=== PATIENT | male | born 1965 | race African-American/Black ===

== ENCOUNTER 2023-07-14 22:29 | Inpatient (IN) | payer OTHER, SELFPAY ==
[2023-07-14 17:26] VITALS: BP 187/88
--- NOTE | 2023-07-14 17:32 | ED.GENMED ---
History of Present Illness
General
Chief Complaint: Musculo-Skeletal Complaint
Source: patient and ambulance crew
Exam Limitations: none
Time Seen by Provider: 07/14/23 17:30
Nursing documentation reviewed up to this point in time: agreed with
History of Present Illness
History of Present Illness:
58-year-old male presents emergency room complaining of a seizure and left arm weakness after the seizure. Seizure occurred about an hour ago. He was riding the bus to see his son in [place] and had a seizure. The healthcare business analyst took him off the
bus and he waited at [facility] for the ambulance.
Past History
Past History
ED Past Medical History: Arrthythmia (AFib), CHF, CVA, Seizures and Other (Protein C and Protein S abnormality, lupus, PE, DVT, neuropathy, sarcoidosis, claustrophobia)
ED Past Surgical History: Other (Domi filter, all toes surgically removed)
Social History
Tobacco: Smoker
Alcohol: None
Drug: None
Personal:
Living: with family
Family History
Family History: Other (Reviewed and non-contributory)
Review of Systems
Review of Systems
Allergies reviewed?: Yes
All Other Systems: Not applicable
Constitutional: Reports no symptoms
EENT: Reports no symptoms
Respiratory: Reports no symptoms
Cardiac: Reports no symptoms
ABD/GI: Reports no symptoms
: Reports no symptoms
Musculoskeletal: Reports no symptoms
Skin: Reports no symptoms
Neurological: Reports weakness (Left arm weakness)
Endocrine: Reports no symptoms
Hematologic/Lymphatic: Reports no symptoms
Psychiatric: Reports no symptoms
Phy Exam
Physical Exam
Physical Exam:
Physical Exam
General: no apparent distress, not acutely ill
Neck: supple. no meningeal signs. normal posterior pharynx
Heart: s1/s2 regular rate and rhythm, no murmur. equal radial
pulses.
HEENT: Pupils equal round reactive to light, EOMI
Lungs: no acute respiratory distress. clear bilaterally
Abdomen: normal bowel sounds. not tender. no CVAT
Neuro: alert and oriented. Bilateral leg weakness, left arm weakness
Skin: no rash
Psychiatric: well kept. interactive and cooperative
Extremities: no edema. no calf tenderness. negative homans. good distal pulses
Course
Orders/Labs/Results
Orders:
Orders
07/14/23 17:30
CT Head W/o Iv Contrast Urgent
Comment:
Reason For Exam: left arm weakness after seizure
Cardiac Monitoring- Treatment ONCE
Pulse Ox/cont/shift [RESP] Stat
Quantity: 1
07/14/23 17:31
Electrocardiogram (*1) Stat
Reason for Study: Other
Other Reason for Exam: neuro symptoms
EKG- Treatment ONCE
07/14/23 17:37
Basic Metabolic Panel Urgent
Complete Blood Count/With Diff Urgent
Prothrombin Time Urgent
07/14/23 17:58
Comprehensive Metabolic Panel Urgent
07/14/23 21:19
Levetiracetam Injectable [Keppra] 1,500 mg IV NOW STA
07/14/23 21:20
Cervical Spine wo Contrast CT [CT Cervical Spine W/o Iv Contr] Urgent
Comment:
Reason For Exam: left arm weakness, seizure
07/14/23 22:07
Admit/Transfer Patient As Directed
Co-Sign Provider:
Level of Care: Inpatient admission
Assign to:: Telemetry
Physician / Group: Hospitalist
Diagnosis: Seizure d/o, left sided deficit
Reason for Telemetry: CVA/TIA
Date to Stop Telemetry: 07/17/23
Time to Stop Telemetry: 11:00
Reason for Hospitalization: Left sided weakness
Expected length of stay greater than two midnights?: Yes
ELOS- Estimated Length of Stay in days: 2
I certify the patient meets the requirements for IP care: Yes
07/14/23 22:10
Code Status As Directed
Resuscitation Status: Full Code
07/14/23 22:14
Levetiracetam Injectable [Keppra] 1,000 mg .ROUTE .STK-MED ONE
07/14/23 22:15
Warfarin [Coumadin] 7.5 mg PO NOW STA
07/14/23 23:39
Acetaminophen [Tylenol/Feverall] 650 mg RECTAL Q4HPRN PRN
Acetaminophen [Tylenol] 650 mg PO Q4HPRN PRN
07/14/23 23:39
Case Management Consult ONCE
Case Management Consult: Discharge Planning
Comment: stroke/tia
DIETARY CONSULT Routine
Reason for Consult: stroke/TIA
NEUROLOGY CONSULT Routine
Consulting Provider: Franc Munoz
Was physician already notified: Yes
Reason for consult: seizure, left sided weakness
[employer] Urgent
Activity As Directed
Activity Level: With Assistance
Bedside Glucose Monitoring As Directed
Frequency: AC&HS
NIH Stroke Scale As Directed
Directions: Per protocol
Comment: every shift and with any change in condition or mental status
Neurological Checks As Directed
Frequency: q4h
Additional Instructions:: q4h x 24h upon admission to the floor, then qshift & with any change in condition
and mental status
Patient Education As Directed
Type: Stroke education packet
Comment: provide to patient and family
Pneumatic Compression Sleeves As Directed
Type: Knee high
Swallow Screening CVA/TIA ONLY As Directed
Comment: NPO until swallowing screening completed
If patient FAILS swallow screening:: NPO, Speech Therapy consult, Aspiration Precautions
If patient PASSES swallow screening, diet:: 2200 amilcar/ 18 CHO Diabetic
Above diet order entered?: Yes- passed screening
Vital Signs As Directed
Frequency: Per unit guidelines
Ot Eval And Treat Routine
Pt Eval And Treat Routine
Activity Level: With Assistance
Speech Therapy Eval & Treat Routine
DX Deep Vein Thrombosis Video Routine
07/15/23 06:00
Basic Metabolic Panel IN AM
Cardiovascular Evaluation IN AM
Complete Blood Count/No Diff IN AM
Glycohemoglobin (HgbA1c) IN AM
Prothrombin Time IN AM
07/15/23 07:30
Insulin Aspart Corrective Low [Novolog Flexpen-Low Resistance] See Protocol SC AC
07/15/23 08:00
Atorvastatin [Lipitor] 80 mg PO DAILY
Hydroxychloroquine [Plaquenil] 400 mg PO BID
Levetiracetam [Keppra] 1,000 mg PO BID
Pantoprazole [Protonix] 40 mg PO BID
Prednisone [Deltasone] 20 mg PO DAILY
07/15/23 18:00
Warfarin [Coumadin] 7.5 mg PO QPM
07/17/23 11:00
DC Protocol for Telemetry ONCE
Abnormal Lab Results
07/14/23
17:37
RBC 4.07 L 10^6/uL
(4.70-6.10)
Hgb 9.4 L g/dL
(13.0-18.0)
Hct 30.3 L %
(39.0-52.0)
MCV 74.4 L fL
(80.0-94.0)
MCH 23.1 L pg
(27.0-31.0)
MCHC 31.0 L g/dL
(33.0-37.0)
RDW 21.2 H %
(11.5-14.5)
Abs Immat Gran (auto) 0.1 H 10^3/uL
(0-0.05)
Immature Gran % 0.7 H %
(0-0.5)
PT 20.8 H Sec
(11.4-14.6)
Creatinine 0.5 L mg/dL
(0.7-1.3)
Glucose 114 H mg/dl
(70-99)
07/14/23 17:37
07/14/23 17:37
Vital Signs
Initial and Last Documented VS:
Initial Vital Signs
Temp Pulse Resp BP Pulse Ox
97.7 F 67 15 187/88 98
07/14/23 17:26 07/14/23 17:26 07/14/23 17:26 07/14/23 17:26 07/14/23 17:26
Last Documented Vital Signs
Temp Pulse Resp BP Pulse Ox
98.3 F 62 18 157/25 98
07/14/23 23:45 07/14/23 23:45 07/14/23 23:45 07/14/23 23:45 07/14/23 23:45
MDM/Problems Addressed
Differential Diagnosis Includes:
Seizure, CVA
MDM/Problems Addressed:
58-year-old male with seizure and left arm weakness, likely functional neurologic deficit. Will admit for further workup. Discussed with Dr. Munoz, who rec admission, and continuing baseline medications.
Chronic conditions affecting care: Neurological disorder (CVA) and Other (Lupus, multiple DVTs)
Acute Exacerbation and/or Progression of Chronic Illness: Neurological disorder (Epilepsy)
*Radiology
Radiology exam reviewed: radiology read reviewed (CT head no acute findings)
*Pulse Oximetry
Patient hypoxic: no
*EKG
Interpreted by ED Provider?: Yes
EKG Intrepretation Date: 07/15/23
EKG Intrepretation Time: 18:44
Interpretation: abnormal
Comparison EKG: no changes
Heart Rate: 66
Rate: normal
Rhythm: sinus, PAC's and PVC's
Ransom: normal axis
Interval: normal interval
QRS Pattern: normal QRS
Ischemia: non-specific ST changes
*[facility] Senior Specialist Interpretation
Rate: normal
Interpretation: normal
Heart Rate: 66
Rhythm: sinus
*Critical Care Note
Total Time (30-74mins, 75-104mins- exclusive of procedures): Not Applicable
Data Reviewed
Review of Other/Old Records Reveals: Records
Source: records (prior eval for similar presentation 04/11/23, functional neurologic disorder)
Prescriptions/Medications Considered But Not Given:
TNK not indicated
Patient Management
Social determinants of health affecting care: Living situation and Strong social support
Discussion with other providers: Hospitalist and Enrolled Agent (neurology Dr. Munoz)
Escalation/DeEscalation of care consider admission/obs:
admit indicated
ED Attending Note
-
Portions of this chart may have been created with voice recognition software.� Occasional wrong word or��sound alike� substitutions may have occurred due to the inherent limitations of voice recognition software.
Discharge Plan
Departure
Patient Disposition: Admit
Date of Disposition: 07/14/23
Time of Disposition: 21:24
Admit to: Telemetry
Presentation/result/management discussed w/ accepting MD/DO: Hospitalist
Patient with high blood pressure during this ER visit?: Yes
Condition: Fair
Discharge Problem:
Seizure, Hypercoagulable state, Sarcoidosis, unspecified, Muscle weakness of left upper extremity
Interventions
Interventions:
*Risk Screen - Suicide Last Done: 07/14/23 17:26
*General Assessment Last Done: 07/14/23 17:26
*Neglect/Abuse Screening Last Done: 07/14/23 17:26
ED- Fall Risk Assessment Last Done: 07/14/23 23:47
*ED COVID-19 Vaccine History Last Done: 07/14/23 17:26
*Nursing Disposition Last Done: 07/14/23 23:47
ED-Musculoskeletal Assessment Last Done: 07/14/23 17:34
Discharge Date and Time
Discharge Date/Time: 07/14/23 23:47
[2023-07-14 17:48] LABS: % Basophils 0.5 % (0-2); % Immature Granulocytes 0.7 % (0-0.5); % Monocytes 8.3 % (1.7-9.3); % Neutrophils 62.5 % (42.2-75.2); Absolute Eosinophils 0.2 10^3/uL (0-0.7); Absolute Immature Granulocytes 0.1 10^3/uL (0-0.05); Absolute Lymphocytes 1.9 10^3/uL (1.2-3.4); Absolute Monocytes 0.6 10^3/uL (0.1-0.6); Absolute Neutrophils 4.6 10^3/uL (1.4-6.5); Hematocrit 30.3 % (39.0-52.0); Hemoglobin 9.4 g/dL (13.0-18.0); Mean Corpuscular Hgb 23.1 pg (27.0-31.0); Mean Corpuscular Volume 74.4 fL (80.0-94.0); Mean Platelet Volume 10.2 fL (7.4-10.4); Nucleated Red Blood Cells % 0 % (-); Red Blood Cell Count 4.07 10^6/uL (4.70-6.10); Red Cell Dist. Width 21.2 % (11.5-14.5); White Blood Cell Count 7.4 10^3/uL (4.8-10.8)
[2023-07-14 17:57] LABS: Platelet Count 178 10^3/uL (130-400)
[2023-07-14 17:58] LABS: PT 20.8 Sec (11.4-14.6)
[2023-07-14 18:12] LABS: Blood Urea Nitrogen 14 mg/dl (9-20); Calcium 8.7 mg/dl (8.4-10.2); Carbon Dioxide 26 mmol/L (22-30); Chloride 105 mmol/L (98-107); Glucose 114 mg/dl (70-99); Sodium 135 mmol/L (135-145); eGFR > 60.00
[2023-07-14 19:18] VITALS: BP 134/57
[2023-07-14 20:02] VITALS: BP 141/73
[2023-07-14 21:02] VITALS: BP 144/67
--- NOTE | 2023-07-14 21:53 | HPS.HSE ---
Family Physician
-
Family Physician: INTERVIEWE UNKNOWN - PT NOT
Chief Complaint
-
Seizure, left arm weakness
History of Present Illness
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
diabetes, osteomyelitis status post bilateral TMA presenting to the emergency department with left hand weakness following a seizure this a.m.
Patient reported compliance with antiepileptic drugs. Reports her last seizure was about 3 months ago with no changes in antiepileptic medications. Has not seen neurologist in a long time but is planning to follow-up with them. He did recall that
he took his Keppra this morning. While he was on the bus (about a seizure episode and was brought to the emergency department thereafter. He appears to be postictal micturition. He is currently awake and minimally responsive. However he has
continued to have left arm and left leg weakness. Patient reports that he has had a similar presentation with left-sided weakness after his seizures in the past. He denies any facial asymmetry, slurred speech or difficulty swallowing.
In the ED ED patient was afebrile and hemodynamically stable. ECG shows a normal sinus rhythm with a rate of 61 occasional PAC and PVCs. CT of the head was negative. CBC is unchanged from prior. Chemistries were mostly unremarkable but potassium
is pending. INR is 1.8. Case discussed with neurology with concern of functional deficits secondary to cause paralysis.
Medical History
Past Medical History
Past Medical History: Reports Seizures
Additional Past Medical History:
Hypercoagulable state,
Essential hypertension
Rheumatoid arthritis
Lupus anticoagulant
Osteomyelitis
Past Surgical History: Reports Orthopedic (Status post bilateral TMA)
Social History
Tobacco: Smoker
Alcohol: None
Drug: None
Personal:
Living: With Family
Employment: Disabled
Family History
Family History: Not pertinent
Allergies / Home Medications
Allergies reflects when Allergies were last updated in [employer].
Home Medications with original date entered in [employer]
Allergy/Medication List:
Allergies
Allergy/AdvReac Type Severity Reaction Status Date / Time
fondaparinux [From Arixtra] Allergy Severe Hives Verified 07/14/23 17:43
apixaban Allergy Anaphylaxis Verified 07/14/23 17:43
enoxaparin sodium Allergy RASH AT Verified 07/14/23 17:43
[From Lovenox] INJECTION
SITE
Iodinated Contrast Media Allergy HIVES,VOMIT Verified 07/14/23 17:43
[IV Dye, Iodine Containing] ING
meperidine HCl [From Demerol] Allergy PT DENIES? Verified 07/14/23 17:43
phenytoin sodium Allergy SEVERE Verified 07/14/23 17:43
[From Dilantin] THROAT
CLOSING'
pneumococcal vaccine Allergy Vomiting Verified 07/14/23 17:43
Home Medications
hydroxychloroquine 200 mg tablet 400 mg PO BID sarcoidosis 10/17/14
prednisone 20 mg tablet 20 mg PO DAILY lupus 10/17/14
lansoprazole 30 mg capsule,delayed release (Prevacid) 30 mg PO BID Gastrointestinal issue 01/07/22
oxycodone-acetaminophen 5 mg-325 mg tablet 2 tab PO Q4H PRN moderate pain #16 tabs 01/16/22
atorvastatin 80 mg tablet 80 mg PO DAILY High Cholesterol 04/08/23
warfarin 7.5 mg tablet 7.5 mg PO DAILY protein S and C deficiency 04/08/23
levetiracetam 500 mg tablet 1,000 mg PO BID Seizures #0 tabs 04/11/23
Review of Systems
-
History Source: Patient
Constitutional: Reports No Symptoms
EENT: Reports No Symptoms
Respiratory: Reports No Symptoms
Cardiac: Reports No Symptoms
Abdomen/GI: Reports No Symptoms
: Reports No Symptoms
Musculoskeletal: Reports No Symptoms
Skin: Reports No Symptoms
Neurological: Reports Weakness
Endocrine: Reports No Symptoms
Hematologic/Lymphatic: Reports No Symptoms
Psych: Reports No Symptoms
Physical Exam
Vital Signs
Vital Signs
Temp Pulse Resp BP Pulse Ox
97.7 F 95 20 144/67 95
07/14/23 17:26 07/14/23 21:02 07/14/23 21:02 07/14/23 21:02 07/14/23 21:02
Physical Exam
General: No Apparent Distress
HEENT: NormoCephalic, Anicteric, Moist mucous membranes, PERRLA and [place] Conjunctivae
Respiratory: Clear
Cardiac: S1/S2 and Regular Rhythm
Breast: Deferred by me
GI: Soft, Non Tender, Non Distended and Normal Bowel Sounds
Rectal: Deferred by Provider
Genito-urinary: Deferred by me
Musculoskeletal: No Clubbing, No Cyanosis, No Edema and Other (Bilateral TMA)
Skin: Warm and Dry
Neuro: AO x 3
Hematologic/Lymphatic: No Lymphadenopathy
Psych: Calm
Laboratory Results
-
07/14/23 17:37
Laboratory Results
PT 20.8 Sec (11.4-14.6) H 07/14/23 17:37
INR 1.80 07/14/23 17:37
Total Bilirubin Cancelled 07/14/23 17:37
AST Cancelled 07/14/23 17:37
ALT Cancelled 07/14/23 17:37
Alkaline Phosphatase Cancelled 07/14/23 17:37
Data Reviewed
-
CT Scan: Report Reviewed by me
Medical Tests (Nuc Med, Echo, EKG etc): Image Personally Visualized and interpreted
Lab Data: Labs Reviewed by me
Old Records: Reviewed
Impression/Plan
-
IMPRESSION:
History 58-year-old male with a history of seizure disorder, hypercoagulable state (lupus anticoagulant, protein C and S deficiency,) on anticoagulation with Coumadin, history of sarcoidosis, posterior myelitis status post bilateral TMA, denies
history of diabetes and is currently off any insulin regimen no antidiabetic medications who presents to the emergency department following a tonic-clonic seizure activity while on the bus. This is followed by left-sided weakness in the upper and
lower extremity. Patient reports similar episodes of left-sided weakness after prior seizure episodes with last seizure described having occurred about 3 months ago. Denies missing any doses of his Keppra.
PLAN:
1. Seizure - Known seizure d/o on AEDs (Keppra). Infrequent episodes with last episode [address] head negative. Labs unremarkable. No signs of acute infection. Denies missing doses. Currently alert and oriented and mentating normally.
Profound Left sided weakness without any other anomalies. Normal sensation. D/W neurology. plan to continue his current regimen.
- admit to telemetry
- s/p Keppra 1.5 mg IV in ED, continue Keppra 100mg bid
- prn lorazepam for seizures
- consider mri
2. Weakness - suspect Ruddy's paralysis given h/o prior versus acute CVA. NIHSS = 8 at this time. due to weakness in left upper and lower ext. CT head negative.
- telemetry
- mri in am if no improvement
- continue ac with coumadin 7.5mg
- continue statin
- neurology notified and following
- swallow evaluation
3. AC
- coumadin 7.5mg daily, check INR
4. DM II - denies diabetes despite records and has not been taking any meds
- sliding scale for now
- a1c in am
5. Rheum - RA
- on chronic prednisone 20mg daily and plaquenil 400mg daily
Full Code
[2023-07-14] MEDS: KEPPRA 1500 MG IV (22:17)
[2023-07-14] MEDS: COUMADIN 7.5 MG PO (23:11)
[2023-07-14 23:45] VITALS: BP 157/25; BMI 22.6
[2023-07-15] VITALS (8 sets, daily range): BP systolic 91–131; BP diastolic 51–66; PULSE 71; O2SAT 98–99; BMI 22.6
--- NOTE | 2023-07-15 | PTCARENOTE ---
pt arrived from ed, pulled over onto bed. aaox3, tele placed, VSS, see MAR and assessment for further details. call parrish within reach.
[2023-07-15] MEDS: PLAQUENIL 400 MG PO ×2 (07:53→21:56)
[2023-07-15] MEDS: LIPITOR 80 MG PO (07:53)
[2023-07-15] MEDS: PROTONIX 40 MG PO ×2 (07:53→21:56)
[2023-07-15] MEDS: DELTASONE 20 MG PO (07:53)
[2023-07-15] MEDS: KEPPRA 1000 MG PO (07:57)
[2023-07-15 07:59] LABS: Glucose - Point of Care 119 mg/dl (70-99)
--- NOTE | 2023-07-15 08:33 | W.PN.HOSP.TC ---
Today's Communication/Plan
-
Increase Keppra. Continue warfarin. PT OT eval.
Assessment / Plan
Assessment / Plan
Physical exam:
General: Well Developed, Well Nourished and No Apparent Distress
HEENT: Normocephalic, Atraumatic and Moist Mucous Membranes
Respiratory: Clear to Auscultation; Negative Wheezes, Rales or Rhonchi
Cardiac: Regular Rhythm and S1/S2
GI: Soft, Nontender and Nondistended
Musculoskeletal: No Clubbing, No Cyanosis and No Edema
Neuro: Awake, Alert and Oriented. Left hemiparesis. Cranial nerves are intact.
Psych: Calm
A/P:
1.� Seizure - Known seizure d/o on AEDs (Keppra).� Infrequent episodes with last episode 3 months ago.� CT head negative.� Labs unremarkable.� No signs of acute infection.� Denies missing doses.� Currently alert and oriented and mentating normally.�
Profound Left sided weakness without any other anomalies.� Normal sensation.� D/W neurology.� plan to continue his current regimen.
-Continue monitor neurological status
- s/p Keppra 1.5 mg IV in ED, continue Keppra 100mg in the morning and 1500 mg at night
- prn lorazepam for seizures
-No need for MRI of the brain or cervical spine given recurrence of event and neurology feels less likely stroke and most likely seizures with Ruddy's paralysis versus functional neurological disorder.
-Likely will need rehab
2. Weakness - suspect Ruddy's paralysis given h/o prior versus acute CVA.� NIHSS =� 8 at this time.� due to weakness in left upper and lower ext.� CT head negative.
- telemetry
- continue ac with Coumadin 7.5mg
- continue statin
- neurology consulted and appreciated input
- swallow evaluation
3. AC
- coumadin 7.5mg daily, check INR
4. DM II - denies diabetes despite records and has not been taking any meds
- sliding scale for now
- a1c in am
5. Rheum - RA
- on chronic prednisone 20mg daily and plaquenil 400mg daily
Full Code
Anticipated Discharge: 24 - 48 hours
Subjective/Interval History
-
Date of Service: July 15, 2023
Patient alert today, denies any seizure-like activity, denies any chest pain or shortness of breath. He still has weakness on the left side of his body. He also complains of chronic pain for which he uses narcotics that it is not order yet.
Objective Data
-
Labs:
Laboratory Results
07/15/23 07/15/23
00:23 06:00
WBC Pending
Hgb Pending
Hct Pending
Plt Count Pending
PT Pending
INR Pending
Sodium Cancelled Pending
Potassium Cancelled Pending
Chloride Cancelled Pending
Carbon Dioxide Cancelled Pending
BUN Cancelled Pending
Creatinine Cancelled Pending
Glucose Cancelled Pending
Calcium Cancelled Pending
Total Bilirubin Cancelled
AST Cancelled
ALT Cancelled
Alkaline Phosphatase Cancelled
Vital Signs:
Vital Signs
Temp Pulse Resp BP Pulse Ox
98.2 F 76 17 102/55 96
07/15/23 07:00 07/15/23 07:00 07/15/23 07:00 07/15/23 07:00 07/15/23 07:00
I&O
07/14/23 07/15/23 07/16/23
06:59 06:59 06:59
Intake Total 240 / 240
Output Total 200 / 200
Balance 40 / 40
Review of Systems
-
All other systems: Reviewed and negative
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
--- NOTE | 2023-07-15 09:52 | PTOTSP ---
Speech Therapy
Patient's speech appeared to intermittently sound a little dysarthric characterized by imprecise consonant production which may be correlated with patient's edentulous dental state. Patient denied any communicative complaints. Patient's
intelligibility remained WNL during conversation.
Swallowing Function: CLOTH FINISHING RANGE BACK TENDER observed patient with several sips of thin liquids and bites of regular consistency solids in which patient appeared to tolerate as he did not exhibit any overt clinical s/sx of aspiration. CLOTH FINISHING RANGE BACK TENDER noted prolonged mastication
which is likely correlated with edentulous dentition but patient independently used thin liquid washes to assist with manipulation. Patient denied any dysphagia complaints.
Per RN, patient tolerated medications whole with thin liquids.
Of note, patient is experiencing left sided weakness throughout the body. This weakness did not appear to impact his ability to eat or drink but is apparent.
Recommendations:
1) Continuation of regular consistency solids and thin liquids
2) Standard aspiration precautions
3) Medications whole with thin liquids
4) Consider further speech/ cognitive assessment pending hospitalization
Plan: CLOTH FINISHING RANGE BACK TENDER will continue to follow; pending hospitalization.
[2023-07-15 11:59] LABS: INR 2.34; PT 25.5 Sec (11.4-14.6)
[2023-07-15] MEDS: PERCOCET 5/325 2 TABLET PO ×3 (11:59→21:53)
[2023-07-15 12:01] LABS: Glycohemoglobin (HgbA1c) 7.2 % (4.0-5.6)
--- NOTE | 2023-07-15 16:01 | CM ---
Chart reviewed - spoke with pt at bedside
Per pr was [place] [address], had a seizure and was brought to the hospital
Pt reports lives with his in [facility] in a 2 story home
Independent with most things, needs some assist - Left sided weakness
DME - wheel chair, stair glide, rolling walker
Past home care - unsure of agency
Past SNF - unsure of facility - in [facility]
PCP - Sr Espinosa
Pharm - [facility]
Pending PT/OT recs
Plan - anticipate d/c to snf - will need auth
[2023-07-15] MEDS: COUMADIN 7.5 MG PO (17:27)
[2023-07-15] MEDS: KEPPRA 1500 MG PO (21:53)
[2023-07-16] MEDS: PERCOCET 5/325 2 TABLET PO ×5 (02:13→22:54)
--- NOTE | 2023-07-16 05:39 | PTCARENOTE ---
Patient refusing am labs, 0400 Neuro check, 0300 vitals, and HS accu check.
[2023-07-16 07:00] VITALS: BP 151/71
--- NOTE | 2023-07-16 07:21 | W.PN.HOSP.TC ---
Today's Communication/Plan
-
Continue increased doses of Keppra. PT OT eval
Assessment / Plan
Assessment / Plan
Physical exam:
General: Well Developed, Well Nourished and No Apparent Distress
HEENT: Normocephalic, Atraumatic and Moist Mucous Membranes
Respiratory: Clear to Auscultation; Negative Wheezes, Rales or Rhonchi
Cardiac: Regular Rhythm and S1/S2
GI: Soft, Nontender and Nondistended
Musculoskeletal: No Clubbing, No Cyanosis and No Edema
Neuro: Awake, Alert and Oriented. Left hemiparesis. Cranial nerves are intact.
Psych: Calm
A/P:
1.� Seizure - Known seizure d/o on AEDs (Keppra).� Infrequent episodes with last episode 3 months ago.� CT head negative.� Labs unremarkable.� No signs of acute infection.� Denies missing doses.� Currently alert and oriented and mentating normally.�
Profound Left sided weakness without any other anomalies.� Normal sensation.� D/W neurology.� plan to continue his current regimen.
-Continue monitor neurological status
- s/p Keppra 1.5 mg IV in ED, continue Keppra 100mg in the morning and 1500 mg at night
- prn lorazepam for seizures
-No need for MRI of the brain or cervical spine given recurrence of event and neurology feels less likely stroke and most likely seizures with Ruddy's paralysis versus functional neurological disorder.
-PT OT eval and recommended rehab.
-Case management for discharge disposition
2. Weakness - suspect Ruddy's paralysis given h/o prior versus acute CVA.� NIHSS =� 8 at this time.� due to weakness in left upper and lower ext.� CT head negative.
- telemetry
- continue ac with Coumadin 7.5mg
- continue statin
- neurology consulted and appreciated input
- swallow evaluation
3. AC
- coumadin 7.5mg daily, check INR (2.34 yesterday, pending today)
4. DM II - denies diabetes despite records and has not been taking any meds
- sliding scale for now
- a1c 7.2
-diabetes education
5. Rheum - RA
- on chronic prednisone 20mg daily and plaquenil 400mg daily
Full Code
Anticipated Discharge: 24 - 48 hours
Subjective/Interval History
-
Date of Service: July 16, 2023
Patient still weak on the left side. He has been noted by nursing 'moving his left side more independently' when he has not been witnessed. He adamantly thinks that he is not diabetic despite elevated hemoglobin A1c. No chest pain or shortness of
breath. No seizure-like activity.
Objective Data
-
Labs:
Laboratory Results
07/15/23 07/16/23
06:00 06:00
WBC Cancelled Pending
Hgb Cancelled Pending
Hct Cancelled Pending
Plt Count Cancelled Pending
PT Pending
INR Pending
Sodium Cancelled Pending
Potassium Cancelled Pending
Chloride Cancelled Pending
Carbon Dioxide Cancelled Pending
BUN Cancelled Pending
Creatinine Cancelled Pending
Glucose Cancelled Pending
Calcium Cancelled Pending
Vital Signs:
Vital Signs
Temp Pulse Resp BP Pulse Ox
98.4 F 71 18 104/51 97
07/15/23 23:50 07/15/23 23:50 07/15/23 23:50 07/15/23 23:50 07/15/23 23:50
I&O
07/15/23 07/16/23 07/17/23
06:59 06:59 06:59
Intake Total 240 / 240 1080 / 1080
Output Total 200 / 200 1400 / 1400
Balance 40 / 40 -320 / -320
[2023-07-16] MEDS: PLAQUENIL 400 MG PO ×2 (08:49→21:45)
[2023-07-16] MEDS: PROTONIX 40 MG PO (08:49)
[2023-07-16] MEDS: LIPITOR 80 MG PO (08:49)
[2023-07-16] MEDS: KEPPRA 1000 MG PO (08:50)
[2023-07-16] MEDS: DELTASONE 20 MG PO (08:50)
[2023-07-16 11:00] VITALS: BP 123/66
--- NOTE | 2023-07-16 12:03 | PN.DE.MGMTRT ---
Insulin Management
- -
07/16/2023: Diabetes Management Consult
58 year old male admitted after an episode of seizure-like activity.
PMH includes: Seizure disorder, Sarcoidosis, GERD, Chronic pain syndrome, Chronically steroid-dependent, Protein S and C deficiency and T2DM on chronic steroids- Pred 20mg daily. Pt states he is not diabetic, A1C 7.2%, chart review shows he was
taking Humalog 5 units AC and Jardiance 10mg daily which was started during his last hospitalization here 04/08/23 to 04/11/23 during which his A1C was 7.9%
His current diabetes regimen includes: low corrective insulin only. He has been non-compliant with Accucheks. Had a FBG of 114 on 07/13 and an AM POC glucose of 119 on 07/14, there has been no other blood sugars obtained.
Will resume Jardiance at OP dose of 10mg daily. Cont Corrective insulin.
Diabetes History
- -
Type of Diabetes: 2
Pre-Admission Diabetes Regimen
07/15/23
06:00
Creatinine Cancelled
Lab Results
Hemoglobin A1c Cancelled 07/15/23 06:00
Insulin Pump Settings
IP Diabetes Regimen
07/15/23
06:00
Glucose Cancelled
Meal type: Lunch
Meal type: Breakfast
Amount consumed: 100%
Amount consumed: 100%
Patient Education
--- NOTE | 2023-07-16 13:09 | PTCARENOTE ---
Diabetes Education- Ken known to me from previous visit in 2015 (A1C 11.7% at that time), current A1C 7.2%. He is insistent that he doesn't have diabetes, stating 'I take steroids'. Explained that prednisone does increase BS and his previous and
current A1C are diagnostic values used to give a diagnosis of diabetes, stated that it may be referred to as steroid induced diabetes but that he should be checking his BS and taking medication as prescribed. He continues to insist 'I don't have
diabetes'. Provided with Contour Next EZ glucometer, instructions given along with testing pattern. He was not able to return demonstrate as he could not use his left hand to hold the lancing device. He states his PCP told him not to test. Explained
the benefit, as he is so resistant, suggest testing FBS 2-3 times a week so he will know the impact both prednisone and Jardiance have. It was challenging to keep him on task as he was talkative regarding many past stories (dx sarcoidosis, of
his son, free [employer] rides, osteomyelitis resulting in bilateral toes amputated, issues with knees). Education booklet with phone number provided for follow up questions.
[2023-07-16 14:34] VITALS: BP 127/63
[2023-07-16] MEDS: COUMADIN 7.5 MG PO (17:02)
[2023-07-16 19:30] VITALS: BP 137/58
[2023-07-16] MEDS: NEURONTIN PO ×2 (21:43→22:00)
[2023-07-16] MEDS: KEPPRA 1500 MG PO (21:51)
[2023-07-16 23:30] VITALS: BP 133/58
[2023-07-17] MEDS: PERCOCET 5/325 2 TABLET PO ×3 (02:53→11:23)
[2023-07-17 03:30] VITALS: BP 140/64
--- NOTE | 2023-07-17 05:54 | PTCARENOTE ---
Patient refused accu checks, continued refusal of any lab draws.
[2023-07-17 07:00] VITALS: BP 154/75
--- NOTE | 2023-07-17 07:48 | W.PN.HOSP.TC ---
Today's Communication/Plan
-
Discharge planning today.
Assessment / Plan
Assessment / Plan
Physical exam:
General: Well Developed, Well Nourished and No Apparent Distress
HEENT: Normocephalic, Atraumatic and Moist Mucous Membranes
Respiratory: Clear to Auscultation; Negative Wheezes, Rales or Rhonchi
Cardiac: Regular Rhythm and S1/S2
GI: Soft, Nontender and Nondistended
Musculoskeletal: No Clubbing, No Cyanosis and No Edema
Neuro: Awake, Alert and Oriented. Apparently left weakness. Cranial nerves are intact.
Psych: Calm
A/P:
1.� Seizure - Known seizure d/o on AEDs (Keppra).� Infrequent episodes with last episode 3 months ago.� CT head negative.� Labs unremarkable.� No signs of acute infection.� Denies missing doses.� Currently alert and oriented and mentating normally.�
Profound Left sided weakness--->Based on current event, patient has conversion disorder most likely.
-Discussed about having psychiatry to see him but he did became upset and does not want to see psychiatry.
-He now tells me that he needs to go to sign papers for his daughter that is in the hospital and he was to go today or sign AMA.
-No need for further inpatient workup and he does not want to go to rehab anyway which at this point I doubt that he needs it. At this point he can be discharged home.
-Continue current antiseizure medicines
Prior to today:
- s/p Keppra 1.5 mg IV in ED, continue Keppra 100mg in the morning and 1500 mg at night
- prn lorazepam for seizures
-No need for MRI of the brain or cervical spine given recurrence of event and neurology feels less likely stroke and most likely seizures with Ruddy's paralysis versus functional neurological disorder.
-PT OT eval and recommended rehab.
-Case management for discharge disposition
2. Weakness - suspect conversion disorder vs Ruddy's paralysis given h/o prior versus acute CVA.� NIHSS =� 8 at this time.� due to weakness in left upper and lower ext.� CT head negative.
- telemetry
- continue ac with Coumadin 7.5mg
- continue statin
- neurology consulted and appreciated input
- swallow evaluation
3. AC
- coumadin 7.5mg daily, check INR (2.34 yesterday, pending today)
4. DM II - denies diabetes despite records and has not been taking any meds
- sliding scale for now
- a1c 7.2
-diabetes education
5. Rheum - RA
- on chronic prednisone 20mg daily and plaquenil 400mg daily
Full Code
Anticipated Discharge: Today
Subjective/Interval History
-
Date of Service: July 17, 2023
Patient was holding the phone on his left hand and as soon as I walked into the room, he switched phone to his right hand and he placed his left arm in the bed and did not move it anymore.
Objective Data
-
Labs:
Laboratory Results
07/16/23 07/17/23
06:00 06:00
WBC Cancelled Pending
Hgb Cancelled Pending
Hct Cancelled Pending
Plt Count Cancelled Pending
PT Cancelled Pending
INR Cancelled Pending
Sodium Pending
Potassium Pending
Chloride Pending
Carbon Dioxide Pending
BUN Pending
Creatinine Pending
Glucose Pending
Calcium Pending
Vital Signs:
Vital Signs
Temp Pulse Resp BP Pulse Ox
98.2 F 62 18 154/75 98
07/17/23 07:00 07/17/23 07:00 07/17/23 07:00 07/17/23 07:00 07/17/23 07:00
I&O
07/16/23 07/17/23 07/18/23
06:59 06:59 06:59
Intake Total 1080 / 1080 1440 / 1440
Output Total 1400 / 1400 2400 / 2400
Balance -320 / -320 -960 / -960
[2023-07-17] MEDS: LIPITOR 80 MG PO (08:11)
[2023-07-17] MEDS: KEPPRA 1000 MG PO (08:11)
[2023-07-17] MEDS: NEURONTIN 600 MG PO (08:11)
[2023-07-17] MEDS: PLAQUENIL 400 MG PO (08:11)
[2023-07-17] MEDS: DELTASONE 20 MG PO (08:12)
[2023-07-17] MEDS: PROTONIX 40 MG PO (08:12)
[2023-07-17] MEDS: JARDIANCE 10 MG PO (08:12)
[2023-07-17 11:00] VITALS: BP 136/76
--- NOTE | 2023-07-17 11:50 | PN.DE.MGMTRT ---
Insulin Management
- -
07/16/2023: Diabetes Management Consult
58 year old male admitted after an episode of seizure-like activity.
PMH includes: Seizure disorder, Sarcoidosis, GERD, Chronic pain syndrome, Chronically steroid-dependent, Protein S and C deficiency and T2DM on chronic steroids- Pred 20mg daily. Pt states he is not diabetic, A1C 7.2%, chart review shows he was
taking Humalog 5 units AC and Jardiance 10mg daily which was started during his last hospitalization here 04/08/23 to 04/11/23 during which his A1C was 7.9%
His current diabetes regimen includes: low corrective insulin only. He has been non-compliant with Accucheks. Had a FBG of 114 on 07/13 and an AM POC glucose of 119 on 07/14, there has been no other blood sugars obtained.
Will resume Jardiance at OP dose of 10mg daily. Cont Corrective insulin.
07/17/2023 Diabetes Management Follow up
No glucose obtained since 07/14, patient refusing labs and POC testing. Jardiance 10 mg continued. Unable to assess efficacy.
Diabetes History
- -
Type of Diabetes: 2
Pre-Admission Diabetes Regimen
07/16/23
06:00
Creatinine Cancelled
Lab Results
Hemoglobin A1c Cancelled 07/15/23 06:00
Insulin Pump Settings
IP Diabetes Regimen
07/16/23
06:00
Glucose Cancelled
Meal type: Dinner
Meal type: Lunch
Meal type: Breakfast
Amount consumed: 100%
Amount consumed: 100%
Amount consumed: 100%
Patient Education
--- NOTE | 2023-07-17 11:57 | W.DCSUMMARY ---
Discharge Summary
Discharge Data
Date of Admission: 07/14/23
Date of Discharge: 07/17/23
-
Pending Results: No
Hospital Course
Patient is 58 years old male came into the hospital with a seizure-like event. Patient also had left hemiparesis after the event. Neurology was consulted. Patient antiseizure medications were adjusted and he did not have any further seizure
events. As far as his left-sided weakness, we feel the etiology of his deficits are most likely conversion disorder related or functional neurological deficits so no need for MRI of the brain. During this hospital stay he was noted to move his
left upper extremity without difficulty and 1 providers approached him to assess him he would continue to exhibit weakness of his left upper extremity. At some point he was recommended to go to rehab but patient declined. Patient is very eager to
go home today. He will be discharged in stable condition today.
Discharge duration: 35 minutes
Discharge Plan
-
Patient Disposition: Home with Home Care
Discharge Diagnosis/Procedures: Seizures. Conversion disorder. Left-sided weakness. History of stroke in the past.
Diet: Low Cholesterol
Activity: As tolerated
Driving Restrictions: No driving
Blood Work: Please PCP to order CBC, CMP, INR within 1 week.
Referrals:
Primary care, provider [Other] (See less than 1 week)
Franc Munoz MD [Active] - in two to three weeks
Prescriptions:
New
levetiracetam 500 mg Tablet
1,500 mg PO HS 30 Days Qty: 90 0RF
Continued
prednisone 20 MG tablet
20 mg PO DAILY
hydroxychloroquine 200 MG tablet
400 mg PO BID
oxycodone-acetaminophen 5-325 mg Tablet
2 tab PO Q4H PRN (Reason: moderate pain) Qty: 16 0RF
Rx Instructions:
04/08/2023, patient filled this medication on 03/17/2023 for 116 tablets according to PDMP.
atorvastatin 80 mg Tablet
80 mg PO DAILY
ipratropium-albuterol 0.5 mg-3 mg(2.5 mg base)/3 mL Solution For Nebulization
3 ml INHALATION R Q6HPRN PRN (Reason: sob)
pantoprazole 40 mg Tablet,Delayed Release (Dr/Ec)
40 mg PO DAILY
insulin lispro 100 unit/mL Solution
5 sliding scale dose SC DAILYPRN PRN (Reason: high sugar over 200)
Patient Comments:
04/08/2023, patient states that they take this medication dailyprn when their BS is over 200; if their BS is over 200, then they use 5 units of this medication.
Jardiance 10 mg Tablet
10 mg PO DAILY
warfarin 7.5 mg Tablet
7.5 mg PO QPM
gabapentin 600 mg tablet
600 mg PO BID
glipizide 5 mg tablet
5 mg PO DAILY@1700
levetiracetam 1,000 mg tablet
1,000 mg PO DAILY
ProAir RespiClick 90 mcg/actuation aerosol powdr breath activated
2 inh INHALATION Q6H PRN (Reason: sob/wheezing when out of the house)
Discharge Orders:
Discharge Patient (As Directed); Ordered 07/17/23
Ordered By: Danny Larson
Discharge Date and Time
Discharge Date/Time: 07/17/23 15:40
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
== END 2023-07-17 15:40 | disposition home or self-care (01) | DRG 101 ==
LOC: 3 WEST ACU 22:29
PROVIDERS: ADMITTING PHYSICIAN Internal Medicine; ATTENDING PHYSICIAN Hospitalist; CONSULT PHYSICIAN Student in an Organized Health Care Education/Training Program; EMERGENCY PHYSICIAN Emergency Medicine
DX: R56.9 Unspecified convulsions (principal); D68.62 Lupus anticoagulant syndrome; D86.9 Sarcoidosis, unspecified; M62.81 Muscle weakness (generalized); F17.200 Nicotine dependence, unspecified, uncomplicated; E11.9 Type 2 diabetes mellitus without complications; M06.9 Rheumatoid arthritis, unspecified
CPT/HCPCS: 70450; 72125; 80048; 82962; 83036; 85025; 85610; 92526; 92610; 93005; 94760; 96374; 97163; 97167; 99285

== ENCOUNTER 2023-11-09 19:22 | Emergency (ER) | payer OTHER, SELFPAY ==
--- NOTE | 2023-11-09 19:29 | ED.CVA ---
History of Present Illness
General
Chief Complaint: CVA/TIA Symptoms
Source: patient
Exam Limitations: none
Time Seen by Provider: 11/09/23 19:28
Nursing documentation reviewed up to this point in time: agreed with
Onset of Stroke Symptoms
Onset of symptoms known: Yes
Date of onset of symptoms: 11/09/23
Time of onset of symptoms: 18:00
History of Present Illness
History of Present Illness:
Patient with history of previous DVT and CVA, on Coumadin, presents to ED secondary to sudden onset of slurred speech and left-sided weakness, an approximate 2 hours prior to arrival. Patient also reports mild headache. Patient who normally
utilizes wheelchair at baseline from previous stroke, but is able to support his own weight and transition, has significant left-sided weakness since 2 hours ago. Patient states that his last INR was 3.5. Denies blurred vision. Denies dizziness.
Denies recent illness. Patient states that he was at his baseline health this morning. Prehospital stroke alert activated.
Past History
Past History
ED Past Medical History: Arrthythmia (AFib), CHF, CVA, Seizures and Other (Protein C and Protein S abnormality, lupus, PE, DVT, neuropathy, sarcoidosis, claustrophobia)
ED Past Surgical History: Other ([place] filter, all toes surgically removed)
Social History
Tobacco: Smoker
Alcohol: None
Drug: None
Personal:
Living: with family
Family History
Family History: Other (Reviewed and non-contributory)
Review of Systems
Review of Systems
Allergies reviewed?: Yes
All Other Systems: ROS reviewed and negative except as documented in HPI and ROS
Constitutional: Reports no symptoms
Respiratory: Reports no symptoms; Denies trouble breathing
Cardiac: Reports no symptoms
ABD/GI: Reports no symptoms
Musculoskeletal: Reports no symptoms
Skin: Reports no symptoms
Neurological: Reports headache and other (Slurred speech and left-sided weakness)
Phy Exam
Physical Exam
Physical Exam:
Physical Exam
General: mild distress, not acutely ill. afebrile.
Head: nc/at. eomi
Neck: supple. no meningeal signs.
Heart: s1/s2 regular rate and rhythm, no murmur. equal radial pulses.
Lungs: no acute respiratory distress. clear bilaterally
Abdomen: normal bowel sounds. not tender.
Neuro: alert and oriented. slurred speech. LUE/LLE flaccid.
Skin: no rash
Psychiatric: well kept. interactive and cooperative
Extremities: no edema. no calf tenderness.
Course
Orders/Labs/Results
Orders:
Orders
11/09/23 19:25
Electrocardiogram (*1) Urgent
Reason for Study: Other
Other Reason for Exam: Possible Stroke
Bedside Glucose- Treatment ONCE
Cardiac Monitoring- Treatment ONCE
EKG- Treatment ONCE
IV Insert/Care/Rem.- Treatment PRN
Vital Signs As Directed
Frequency: Other
Weight As Directed
Frequency: Once
Comment: ZERO STRETCHER SCALE FOR ACCURATE WEIGHT
O2 Therapy [RESP] Urgent
Titrate/Wean O2 to maintain O2 sat greater than (%): 93
Special Instructions: MAINTAIN CONTINUOUS O2 SATS > OR = 93%
11/09/23 19:26
CT Head W/o Cont STROKE ALERT Urgent
Comment:
Reason For Exam: STROKE ALERT
11/09/23 19:30
Complete Blood Count/With Diff Urgent
Comprehensive Metabolic Panel Urgent
PTT Urgent
Prothrombin Time Urgent
Troponin I Urgent
11/09/23 20:01
Diphenhydramine [Benadryl] 50 mg IV NOW STA
Hydrocortisone Sod Succinate [Solu-Cortef] 200 mg IV NOW STA
Abnormal Lab Results
11/09/23
19:30
RBC 4.34 L 10^6/uL
(4.70-6.10)
Hgb 10.2 L g/dL
(13.0-18.0)
Hct 33.2 L %
(39.0-52.0)
MCV 76.5 L fL
(80.0-94.0)
MCH 23.5 L pg
(27.0-31.0)
MCHC 30.7 L g/dL
(33.0-37.0)
RDW 18.7 H %
(11.5-14.5)
Abs Immat Gran (auto) 0.1 H 10^3/uL
(0-0.05)
Absolute Monos (auto) 1.1 H 10^3/uL
(0.1-0.6)
Immature Gran % 1.0 H %
(0-0.5)
Monocytes % 10.2 H %
(1.7-9.3)
PT 25.1 H Sec
(11.4-14.6)
APTT 36.8 H Sec
(23.4-35.0)
11/09/23 19:30
11/09/23 19:30
Vital Signs
Initial and Last Documented VS:
Initial Vital Signs
Temp Pulse Resp BP Pulse Ox
98.7 F 70 30 123/86 97
11/09/23 19:30 11/09/23 19:30 11/09/23 19:30 11/09/23 19:30 11/09/23 19:30
Last Documented Vital Signs
Temp Pulse Resp BP Pulse Ox
98.7 F 70 19 114/58 99
11/09/23 19:30 11/09/23 21:00 11/09/23 21:00 11/09/23 21:00 11/09/23 20:30
MDM/Problems Addressed
MDM/Problems Addressed:
Discussed with (neurology) - in light of patient's sig. medical/complex dvt/cva history, recommends transferring patient to tertiary care hospital for potential IAT eval. In addition, agrees with not obtaining CTA at this time, due to sig.
iv dye allergy.
INR: 2.29 Unable to administer TnK
Will contact [facility] neurology for potential transfer, as patient was seen @ [place] 2 yrs ago.
Discussed with stroke fellow @ [place] who advised that patient to be transferred to [place] for expedited workup.
Discussed with stroke fellow @ [place] () who agreed accept transfer. Aware of hydrocortisone (200mg) and Benadryl (50mg) given for pretreatment of iv dye allergy. In addition, aware that patient was not given TnK due to elevated INR.
Critical care statement: A total of 40 minutes of critical care time was provided for this patient. This includes management of unstable vital signs, evaluation of the patient at bedside, reviewing the patient's pertinent medical records, discussion
with consultants, review of old EKGs and review of pertinent medical records. This time with separate from time utilized to perform the aforementioned documented procedures
*EKG
Interpreted by ED Provider?: Yes
EKG Intrepretation Date: 11/09/23
Heart Rate: 72
Rate: normal
Rhythm: sinus and PVC's
[place]: left axis deviation
Interval: normal interval
*Critical Care Note
Total Time (30-74mins, 75-104mins- exclusive of procedures): 40 min
ED Attending Note
-
Portions of this chart may have been created with voice recognition software.� Occasional wrong word or��sound alike� substitutions may have occurred due to the inherent limitations of voice recognition software.
Discharge Plan
Departure
Patient Disposition: Acute Care Hospital
Date of Disposition: 11/09/23
Time of Disposition: 19:54
Discharge Problem:
Acute CVA (cerebrovascular accident)
Prescriptions:
No Action
prednisone 20 MG tablet
20 mg PO DAILY
hydroxychloroquine 200 MG tablet
400 mg PO BID
oxycodone-acetaminophen 5-325 mg Tablet
2 tab PO Q4H PRN (Reason: moderate pain) Qty: 16 0RF
Rx Instructions:
04/08/2023, patient filled this medication on 03/17/2023 for 116 tablets according to PDMP.
atorvastatin 80 mg Tablet
80 mg PO DAILY
ipratropium-albuterol 0.5 mg-3 mg(2.5 mg base)/3 mL Solution For Nebulization
3 ml INHALATION R Q6HPRN PRN (Reason: sob)
pantoprazole 40 mg Tablet,Delayed Release (Dr/Ec)
40 mg PO DAILY
insulin lispro 100 unit/mL Solution
5 sliding scale dose SC DAILYPRN PRN (Reason: high sugar over 200)
Patient Comments:
04/08/2023, patient states that they take this medication dailyprn when their BS is over 200; if their BS is over 200, then they use 5 units of this medication.
Jardiance 10 mg Tablet
10 mg PO DAILY
warfarin 7.5 mg Tablet
7.5 mg PO QPM
gabapentin 600 mg tablet
600 mg PO BID
glipizide 5 mg tablet
5 mg PO DAILY@1700
levetiracetam 1,000 mg tablet
1,000 mg PO DAILY
ProAir RespiClick 90 mcg/actuation aerosol powdr breath activated
2 inh INHALATION Q6H PRN (Reason: sob/wheezing when out of the house)
levetiracetam 500 mg Tablet
1,500 mg PO HS 30 Days Qty: 90 0RF
Referrals:
UNKNOWN - PT DOES,NOT KNOW [Family Provider] -
Hospital Transfer
Other hospital: [facility]
I certify that the patient requires transfer: Yes
Discussed case with accepting physician:
Reason for transfer: higher level of care, medical necessity, availability of service and specialties available
Interventions
Interventions:
*Risk Screen - Suicide Last Done: 11/09/23 19:30
*General Assessment Last Done: 11/09/23 19:30
*Neglect/Abuse Screening Last Done: 11/09/23 19:30
*ED COVID-19 Vaccine History Last Done: 11/09/23 19:30
*Nursing Disposition Last Done: 11/09/23 21:20
ED- Pulmonary Assessment Last Done: 11/09/23 19:30
ED- Neurological Assessment Last Done: 11/09/23 19:30
ED- Cardiac Assessment Last Done: 11/09/23 19:30
Discharge Date and Time
Discharge Date/Time: 11/09/23 21:22
Print Language: KYRGYZ
[2023-11-09 19:30] VITALS: BP 123/86
[2023-11-09 19:36] LABS: % Basophils 0.8 % (0-2); % Eosinophils 2.6 % (0-6); % Lymphocytes 24.8 % (20.5-51.1); % Monocytes 10.2 % (1.7-9.3); % Neutrophils 60.6 % (42.2-75.2); Absolute Basophils 0.1 10^3/uL (0-0.2); Absolute Eosinophils 0.3 10^3/uL (0-0.7); Absolute Immature Granulocytes 0.1 10^3/uL (0-0.05); Absolute Lymphocytes 2.6 10^3/uL (1.2-3.4); Absolute Monocytes 1.1 10^3/uL (0.1-0.6); Absolute Neutrophils 6.2 10^3/uL (1.4-6.5); Hematocrit 33.2 % (39.0-52.0); Hemoglobin 10.2 g/dL (13.0-18.0); Mean Corp Hgb Conc. 30.7 g/dL (33.0-37.0); Mean Corpuscular Hgb 23.5 pg (27.0-31.0); Mean Corpuscular Volume 76.5 fL (80.0-94.0); Mean Platelet Volume 9.7 fL (7.4-10.4); Nucleated Red Blood Cells % 0 % (-); Platelet Count 319 10^3/uL (130-400); Red Blood Cell Count 4.34 10^6/uL (4.70-6.10); Red Cell Dist. Width 18.7 % (11.5-14.5); White Blood Cell Count 10.3 10^3/uL (4.8-10.8)
[2023-11-09 19:46] LABS: INR 2.29; PT 25.1 Sec (11.4-14.6)
[2023-11-09 19:47] LABS: APTT 36.8 Sec (23.4-35.0)
[2023-11-09 19:51] LABS: ALT (SGPT) 16 U/L (0-50); AST (SGOT) 22 U/L (17-59); Albumin 4.1 g/dl (3.5-5.0); Alkaline Phosphatase 86 U/L (38-126); Blood Urea Nitrogen 20 mg/dl (9-20); Calcium 9.7 mg/dl (8.4-10.2); Carbon Dioxide 30 mmol/L (22-30); Chloride 100 mmol/L (98-107); Glucose 95 mg/dl (70-99); Sodium 138 mmol/L (135-145); Total Bilirubin 0.8 mg/dl (0.2-1.3); Total Protein 7.1 g/dl (6.3-8.2); eGFR > 60.00
[2023-11-09 19:59] LABS: Troponin I 0.032 ng/ml
[2023-11-09 20:04] VITALS: BMI 28.2
[2023-11-09] MEDS: BENADRYL 50 MG IV (20:07)
[2023-11-09] MEDS: SOLU-CORTEF 200 MG IV (20:07)
[2023-11-09 20:17] VITALS: BP 122/71
[2023-11-09 20:30] VITALS: BP 103/62
[2023-11-09 21:00] VITALS: BP 114/58
== END 2023-11-09 21:22 | disposition short-term general hospital (02) ==
LOC: EMR 19:22
PROVIDERS: EMERGENCY PHYSICIAN Emergency Medicine
DX: I63.9 Cerebral infarction, unspecified (principal); G81.94 Hemiplegia, unspecified affecting left nondominant side; R47.81 Slurred speech; R51.9 Headache, unspecified; I48.91 Unspecified atrial fibrillation; I50.9 Heart failure, unspecified; R56.9 Unspecified convulsions; M32.9 Systemic lupus erythematosus, unspecified; D86.9 Sarcoidosis, unspecified; M06.9 Rheumatoid arthritis, unspecified; M48.00 Spinal stenosis, site unspecified; E11.40 Type 2 diabetes mellitus with diabetic neuropathy, unspecified; F17.200 Nicotine dependence, unspecified, uncomplicated; Z79.01 Long term (current) use of anticoagulants; Z86.718 Personal history of other venous thrombosis and embolism; Z86.711 Personal history of pulmonary embolism; Z87.01 Personal history of pneumonia (recurrent)
CPT/HCPCS: 99291; 96374; 96375; 70450; 80053; 84484; 85025; 85610; 85730; 93005

== ENCOUNTER 2024-10-20 14:05 | Inpatient (IN) | payer OTHER, SELFPAY ==
[2024-10-20 09:28] VITALS: BP 135/79; BMI 27.7
--- NOTE | 2024-10-20 09:42 | ED.GENMED ---
History of Present Illness
General
Chief Complaint: Seizure
Source: patient
Exam Limitations: none
Time Seen by Provider: 10/20/24 09:33
History of Present Illness
History of Present Illness:
Patient is a 59-year-old male with past medical history of protein C and S deficiency, currently anticoagulated on warfarin, multiple DVTs/PEs, seizure disorder on Keppra twice daily, reported CVA without residual deficits according to patient, SLE,
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 Patient reports that he actually lives in [place] but was
taking the bus to the visit his daughter this morning who lives in [place]. The patient reportedly had his typical aura prior to the seizure which to him is smelling rotten fish. Patient reports that he then believes he had a tonic-clonic
seizure. Patient reports that he was sitting in a chair and did not fall to the ground. Patient was noted to urinate on himself according to EMS. drivers' cash clerk stopped and called 911. On arrival, the patient denies headache, dizziness, vision
changes, chest pain, shortness of breath, abdominal pain, nausea, vomiting. Patient states that he has noticed weakness in his left upper and left lower extremity for the past 3 to 4 days or so. Patient reports it has been constant and not
intermittent. He reports that over the same period of time he has noted increased forgetfulness and some slurring of his speech. Patient reports that it does feel similar to when he had his previous stroke. Patient denies any other new numbness,
weakness, or tingling today.
Past History
Past History
ED Past Medical History: Arrthythmia (AFib), CHF, CVA, Seizures and Other (Protein C and Protein S abnormality, lupus, PE, DVT, neuropathy, sarcoidosis, claustrophobia)
ED Past Surgical History: Other ([place] filter, all toes surgically removed)
Social History
Tobacco: Smoker
Alcohol: None
Drug: None
Personal:
Living: with family
Family History
Family History: Other (Reviewed and non-contributory)
Review of Systems
Review of Systems
Allergies reviewed?: Yes
All Other Systems: Not applicable
Constitutional: Reports no symptoms
EENT: Reports no symptoms
Respiratory: Reports no symptoms
Cardiac: Reports no symptoms
ABD/GI: Reports no symptoms
: Reports no symptoms
Musculoskeletal: Reports no symptoms
Skin: Reports no symptoms
Neurological: Reports weakness (LUE and LLE)
Endocrine: Reports no symptoms
Hematologic/Lymphatic: Reports no symptoms
Psychiatric: Reports no symptoms
Phy Exam
General Physical Exam
General Presentation: well appearing and no apparent distress
General Skin: warm and dry
General Habitus: normal
General Mental: alert
General Hydration: appears well hydrated
ENT Exam
ENT Exam: EOMI, pharynx normal, neck supple and normocephalic
Eye Exam
Eye Exam: PERRL, EOMI, cornea clear and conjunctiva normal
Cardiovascular Exam
Cardiovascular Exam: regular rate/rhythm, no edema, no murmur and normal peripheral pulses
Pulmonary Exam
Pulmonary Exam: lungs clear, no respiratory distress, no rales, no crackles, no rhonchi, no stridor, no wheezing and no cough
Gastrointestinal Exam
Gastrointestinal Exam: normal bowel sounds, non tender, soft, no organomegaly, no pulsatile mass and non distended
Neurological Exam
Neurological Exam: alert, oriented x3, speech normal and motor weakness (LUE and LLE)
NIH Stroke Score
Level of Consciousness: 0 - Alert
LOC questions: 0-Answers both correctly
LOC Commands: 0-Performs both correctly
Best Gaze: 0-Normal
Visual [place]: 0=Normal, no visual loss
Facial palsy: 0=Normal, symmetrical
Motor - Right Arm: 0=No drift 10 seconds
Motor - Left Arm: 2=Partial vs. gravity
Motor - Right Le-No drift 5 seconds
Motor - Left Le-Partial vs. gravity
Limb Ataxia: 0-Absent
Sensation: 1-Mild loss
Best Language: 0-No aphasia
Dysarthria: 0-Normal
Extinction and Inattention: 0-No abnormality
Total Score:: 5
Musculoskeletal Exam
Musculoskeletal Exam: full ROM and no edema
Skin Exam
Skin Exam: normal color, warm/dry, no rash and no petechia
Psychiatric Exam
Psychiatric Exam: normal mood/affect
Course
Orders/Labs/Results
Orders:
Orders
10/20/24 10:05
CT Head W/o Iv Contrast Urgent
Comment:
Reason For Exam: Left sided weakness x 3 days
Cardiac Monitoring- Treatment ONCE
10/20/24 10:06
Electrocardiogram (*1) Stat
Reason for Study: Other
Other Reason for Exam: neuro symptoms
EKG- Treatment ONCE
10/20/24 11:19
Basic Metabolic Panel Urgent
Complete Blood Count/With Diff Urgent
Prothrombin Time Urgent
10/20/24 13:21
Admit/Transfer Patient As Directed
Co-Sign Provider:
Level of Care: Inpatient admission
Assign to:: Telemetry
Physician / Group: Tc Karimi
Diagnosis: left-sided weakness, CVA/TIA, seizure
Reason for Telemetry: CVA/TIA
Date to Stop Telemetry: 10/23/24
Time to Stop Telemetry: 11:00
Reason for Hospitalization: left-sided weakness, CVA/TIA, seizure
Expected length of stay greater than two midnights?: Yes
ELOS- Estimated Length of Stay in days: 3
I certify the patient meets the requirements for IP care: Yes
PRN Pain Medication Management As Directed
May give lesser potent ordered pain med per pt: Yes
preference::
Protocol:: Medication orders for pain may be administered in a
manner that supports deferring to patient preference
when the pt is:
- Requesting an ordered lesser potent pain medication.
Least to most potent pain medications are defined
as: acetaminophen < NSAID < tramadol < opioids
(morphine, oxycodone, hydromorphone).
- Requesting a lesser dose of the same medication IF
ORDERED.
- Requesting a less intrusive route of administration
if both routes are prescribed by the provider (PO <
IV).
10/20/24 13:22
Code Status As Directed
Resuscitation Status: Full Code
10/20/24 13:39
Add On- LAB Routine
Tests Added?: CMP
10/23/24 11:00
DC Protocol for Telemetry ONCE
Abnormal Lab Results
10/20/24
11:19
RBC 4.59 L 10^6/uL
(4.70-6.10)
Hgb 11.0 L g/dL
(13.0-18.0)
Hct 35.6 L %
(39.0-52.0)
MCV 77.6 L fL
(80.0-94.0)
MCH 24.0 L pg
(27.0-31.0)
MCHC 30.9 L g/dL
(33.0-37.0)
RDW 17.2 H %
(11.5-14.5)
Abs Immat Gran (auto) 0.1 H 10^3/uL
(0-0.05)
Absolute Neuts (auto) 6.8 H 10^3/uL
(1.4-6.5)
Absolute Monos (auto) 0.8 H 10^3/uL
(0.1-0.6)
Immature Gran % 0.7 H %
(0-0.5)
PT 19.4 H Sec
(11.4-14.6)
Chloride 108 H mmol/L
(98-107)
BUN 27 H mg/dl
(9-20)
10/20/24 11:19
10/20/24 11:19
Vital Signs
Initial and Last Documented VS:
Initial Vital Signs
Temp Pulse Resp BP Pulse Ox
97.9 F 78 18 135/79 98
10/20/24 09:28 10/20/24 09:28 10/20/24 09:28 10/20/24 09:28 10/20/24 09:28
Last Documented Vital Signs
Temp Pulse Resp BP Pulse Ox
97.9 F 68 17 135/79 97
10/20/24 09:28 10/20/24 13:00 10/20/24 13:00 10/20/24 09:28 10/20/24 11:03
*Critical Care Note
Total Time (30-74mins, 75-104mins- exclusive of procedures): Not Applicable
Update Note
Update Note:
59-year-old male with history of seizure disorder as well as reported CVA, protein C&S deficiency anticoagulated on warfarin, presents to the emergency department for evaluation following a seizure. In further discussion, patient also endorses
left-sided weakness for the past 3 to 4 days. On arrival, patient's vital signs are stable, he is afebrile. On exam, patient is overall well-appearing, he is in no acute distress, he does have left-sided upper and lower extremity weakness, no
slurred speech noted, he is oriented x 3. Case discussed with ED attending, will perform a subacute stroke workup. Anticipate the patient will require admission. Unfortunately, patient does have anaphylaxis to IV contrast therefore will check a
CT of the head without IV contrast and further imaging can be considered during his admission.
EKG notable for T wave inversions in the inferolateral leads, not entirely new. Labs are nonactionable. CT of the head demonstrates no acute abnormality to account for the patient's symptoms today. Patient reassessed and made aware of all
findings. Patient signed out to the hospitalist without complication.
ED Attending Note
-
Portions of this chart may have been created with voice recognition software.� Occasional wrong word or��sound alike� substitutions may have occurred due to the inherent limitations of voice recognition software.
Discharge Plan
Departure
Patient Disposition: Admit
Date of Disposition: 10/20/24
Time of Disposition: 12:47
Presentation/result/management discussed w/ accepting MD/DO: Hospitalist
Patient with high blood pressure during this ER visit?: Yes
Condition: Good
Covid-19: Not Applicable
Discharge Problem:
Left-sided muscle weakness, Seizure
Prescriptions:
No Action
prednisone 20 MG tablet
20 mg PO DAILY
hydroxychloroquine 200 MG tablet
400 mg PO BID
oxycodone-acetaminophen 5-325 mg Tablet
2 tab PO Q4H PRN (Reason: moderate pain) Qty: 16 0RF
Rx Instructions:
04/08/2023, patient filled this medication on 03/17/2023 for 116 tablets according to PDMP.
atorvastatin 80 mg Tablet
80 mg PO DAILY
ipratropium-albuterol 0.5 mg-3 mg(2.5 mg base)/3 mL Solution For Nebulization
3 ml INHALATION R Q6HPRN PRN (Reason: sob)
pantoprazole 40 mg Tablet,Delayed Release (Dr/Ec)
40 mg PO DAILY
insulin lispro 100 unit/mL Solution
5 sliding scale dose SC DAILYPRN PRN (Reason: high sugar over 200)
Patient Comments:
04/08/2023, patient states that they take this medication dailyprn when their BS is over 200; if their BS is over 200, then they use 5 units of this medication.
Jardiance 10 mg Tablet
10 mg PO DAILY
warfarin 7.5 mg Tablet
7.5 mg PO QPM
gabapentin 600 mg tablet
600 mg PO BID
glipizide 5 mg tablet
5 mg PO DAILY@1700
levetiracetam 1,000 mg tablet
1,000 mg PO DAILY
ProAir RespiClick 90 mcg/actuation aerosol powdr breath activated
2 inh INHALATION Q6H PRN (Reason: sob/wheezing when out of the house)
levetiracetam 500 mg Tablet
1,500 mg PO HS 30 Days Qty: 90 0RF
Referrals:
UNKNOWN - PT DOES,NOT KNOW [Family Provider]
Interventions
Interventions:
*Risk Screen - Suicide Last Done: 10/20/24 09:28
*General Assessment Last Done: 10/20/24 09:28
*Neglect/Abuse Screening Last Done: 10/20/24 09:28
*ED- Fall Risk Assessment Last Done: 10/20/24 09:28
*ED COVID-19 Vaccine History Last Done: 10/20/24 09:28
ED- Cardiac Assessment Last Done: 10/20/24 11:04
ED- Neurological Assessment Last Done: 10/20/24 11:04
ED- Pulmonary Assessment Last Done: 10/20/24 11:05
Discharge Date and Time
Print Language: TURKMEN
[2024-10-20 11:25] LABS: % Basophils 0.5 % (0-2); % Eosinophils 1.2 % (0-6); % Immature Granulocytes 0.7 % (0-0.5); % Lymphocytes 23.2 % (20.5-51.1); % Monocytes 7.7 % (1.7-9.3); % Neutrophils 66.7 % (42.2-75.2); Absolute Basophils 0.1 10^3/uL (0-0.2); Absolute Eosinophils 0.1 10^3/uL (0-0.7); Absolute Immature Granulocytes 0.1 10^3/uL (0-0.05); Absolute Lymphocytes 2.4 10^3/uL (1.2-3.4); Absolute Monocytes 0.8 10^3/uL (0.1-0.6); Absolute Neutrophils 6.8 10^3/uL (1.4-6.5); Hematocrit 35.6 % (39.0-52.0); Mean Corp Hgb Conc. 30.9 g/dL (33.0-37.0); Mean Corpuscular Volume 77.6 fL (80.0-94.0); Nucleated Red Blood Cells % 0 % (-); Platelet Count 219 10^3/uL (130-400); Red Blood Cell Count 4.59 10^6/uL (4.70-6.10); Red Cell Dist. Width 17.2 % (11.5-14.5); White Blood Cell Count 10.2 10^3/uL (4.8-10.8)
[2024-10-20 11:36] LABS: INR 1.61; PT 19.4 Sec (11.4-14.6)
[2024-10-20 11:57] LABS: Blood Urea Nitrogen 27 mg/dl (9-20); Calcium 8.9 mg/dl (8.4-10.2); Carbon Dioxide 25 mmol/L (22-30); Chloride 108 mmol/L (98-107); Estimated Creatinine Clearance 122 ml/min; Glucose 97 mg/dl (70-99); Sodium 138 mmol/L (135-145); eGFR > 60.00
--- NOTE | 2024-10-20 12:55 | HPS.HSE ---
Family Physician
-
Family Physician: NOT KNOW UNKNOWN - PT DOES
Chief Complaint
-
left-sided weakness, seizure activity
History of Present Illness
Patient is a 59-year-old male with past medical history significant for hypertension, hyperlipidemia, seizures and DM II who presented to [facility] ED for evaluation s/p seizure while riding on bus. Patient states he was on a bus heading to [place] to
visit daughter from his home in [place] when he sustained a seizure. He reports he had typical aura prior to seizure activity, which is the smell of rotten fish. Denies falling out of chair on bus, does report incontinence of urine at time of
seizure. Patient states he has had constant left upper and left lower extremity weakness the past 3 - 4 days, with associated slurred speech and increased forgetfulness. He reports a previous stroke with similar symptoms. Patient currently denies
any headache, dizziness, vision changes, chest pain, palpitations, shortness of breath, nausea, vomiting, constipaion or diarrhea.
Medical History
Past Medical History
Past Medical History: Reports Other
Additional Past Medical History:
hyperlipidemia
DM II
hypercoagulable state
essential hypertension
rheumatoid arthritis
lupus anticoagulant
osteomyelitis
seizures
Past Surgical History: Reports Other
Additional Past Surgical History:
Status post bilateral TMA
Social History
Tobacco: Smoker (1-2 cigarettes daily )
Alcohol: None
Drug: None
Personal:
Living: With Family
Employment: Disabled
Family History
Family History: Not pertinent
Allergies / Home Medications
Allergies reflects when Allergies were last updated in [employer].
Home Medications with original date entered in [employer]
Allergy/Medication List:
Allergies
Allergy/AdvReac Type Severity Reaction Status Date / Time
fondaparinux (From Arixtra) Allergy Severe Hives Verified 10/20/24 09:35
tomato Allergy Severe Anaphylaxis Verified 10/20/24 16:10
apixaban Allergy Anaphylaxis Verified 10/20/24 09:35
enoxaparin sodium (From Allergy RASH AT Verified 10/20/24 09:35
Lovenox) INJECTION
SITE
Iodinated Contrast Media (IV Allergy HIVES,VOMIT Verified 10/20/24 09:35
Dye, Iodine Containing) ING
meperidine HCl (From Demerol) Allergy PT DENIES? Verified 10/20/24 09:35
phenytoin sodium (From Allergy SEVERE Verified 10/20/24 09:35
Dilantin) THROAT
CLOSING'
pneumococcal vaccine Allergy Vomiting Verified 10/20/24 09:35
Home Medications
hydroxychloroquine 200 mg tablet 400 mg PO BID sarcoidosis 10/17/14
prednisone 20 mg tablet 20 mg PO DAILY sarcoidosis 10/17/14
levetiracetam 1,000 mg tablet 1,000 mg PO DAILY Seizures 07/16/23
carvedilol 12.5 mg tablet (Coreg) 12.5 mg PO BID 10/20/24
furosemide 20 mg tablet (Lasix) 20 mg PO DAILY 10/20/24
insulin lispro 100 unit/mL subcutaneous solution 1 sliding scale dose SC AC 10/20/24
rosuvastatin 40 mg tablet (Crestor) 40 mg PO DAILY 10/20/24
sacubitril 24 mg-valsartan 26 mg tablet (Entresto) 1 tab PO BID 10/20/24
warfarin 7.5 mg tablet mg PO 10/20/24
Review of Systems
-
History Source: Patient
Neurological: Reports Weakness (left upper and left lower extremity ) and Other (increased forgetfulness and slurred speech for 3-4 days.)
Physical Exam
Vital Signs
Vital Signs
Temp Pulse Resp BP Pulse Ox
97.9 F 78 18 135/79 98
10/20/24 09:28 10/20/24 09:28 10/20/24 09:28 10/20/24 09:28 10/20/24 09:28
Physical Exam
General: Well Developed, Well Nourished, No Apparent Distress, Comfortable and Conversant
HEENT: NormoCephalic, Moist mucous membranes, Atraumatic, Nose Appears Normal and Ears Appear Normal
Respiratory: Clear and Non Labored Respirations
Cardiac: S1/S2 and Regular Rhythm
Breast: Deferred by me
GI: Soft, Non Tender, Non Distended and Normal Bowel Sounds
Rectal: Deferred by Provider
Genito-urinary: Deferred by me
Musculoskeletal: No Clubbing, No Cyanosis, No Edema and Other (all toes previously amputated )
Skin: IV/Catheter Site
Neuro: Awake, Alert, AO x 3 and Other (left upper and left lower extremity weakness ); No Slurred Speech
Psych: Calm
Laboratory Results
-
10/20/24 11:19
10/20/24 11:19
Laboratory Results
PT 19.4 Sec (11.4-14.6) H 10/20/24 11:19
INR 1.61 10/20/24 11:19
Total Bilirubin Cancelled 10/20/24 11:19
AST Cancelled 10/20/24 11:19
ALT Cancelled 10/20/24 11:19
Alkaline Phosphatase Cancelled 10/20/24 11:19
Data Reviewed
-
CT Scan: Report Reviewed by me (Head: There are mild changes of cortical atrophy, unchanged)
Lab Data: Labs Reviewed by me
Impression/Plan
-
IMPRESSION/PLAN:
#left-sided weakness 2/2 CVA/TIA vs. seizure
#seizures
#Hx CVA
Head CT: There are mild changes of cortical atrophy, unchanged
EKG: NORMAL SINUS RHYTHM
LEFT VENTRICULAR HYPERTROPHY WITH REPOLARIZATION ABNORMALITY ( R in aVL, Sokolow-Veronica , Marcus product )
- Admit to telemetry
- Consult Neurology
- PT/OT consult
- continue levetiracetam
#hyperlipidemia
- continue rosuvastatin
#DM II
A1C pending
- continue Jardiance and glipizide
- AccuCheck AC & HS
- SSI
#heart failure??
- continue carvedilol, Entresto and furosemide
#essential hypertension
- continue carvedilol and furosemide
#hypercoagulable state
INR 1.61
- no current anticoagulation??
#rheumatoid arthritis
#lupus
- continue prednisone
#osteomyelitis
Code status: full code
DVT prophylaxis: SCDs
--- NOTE | 2024-10-20 13:10 | W.PN.UPDATE ---
Addendum entered and electronically signed by Tc Karimi MD 10/20/24 13:47:
ADDENDUM PMHX
- HX IVCF placement
- HX Sarcoidosis
Addendum entered and electronically signed by Tc Karimi MD 10/20/24 13:31:
Case , AP dw Neurologist ( Dr Mendiola) ref to Brain MRI
- suggest would not change the current management
- regardless patient will be on chr warfarin
- to cancel Brain MRI
- f/u further Neurologist for recurrent Sz
- PT, OT, ST
- CRM consult for further rehab - SNF ?
Original Note:
Update Note
Progress Note Update
This note serves as an addendum to the H&P by roll machine operator TITI Joslyn Khandock
HPI
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
B/L TMT amputation of both feet, seen at ER:
- Evaluation for Sz this morning
- Noted weakness of LUEx and LLEx for 3 - 4days presumed subacute stroke
- HX contrast allergy
VSS, afebrile.
On exam
well-appearing
LUE and LLE weakness, no other focal neuro deficits.
B/L TMT amputation of both feet
Abnormal Lab Results
10/20/24
11:19
RBC 4.59 L
Hgb 11.0 L
Hct 35.6 L
MCV 77.6 L
MCH 24.0 L
MCHC 30.9 L
RDW 17.2 H
Abs Immat Gran (auto) 0.1 H
Absolute Neuts (auto) 6.8 H
Absolute Monos (auto) 0.8 H
Immature Gran % 0.7 H
PT 19.4 H
Chloride 108 H
BUN 27 H
EKG with TWI which are mostly unchanged from prior.
HCT: There are mild changes of cortical atrophy, unchanged
EKG:
NORMAL SINUS RHYTHM
LEFT VENTRICULAR HYPERTROPHY WITH REPOLARIZATION ABNORMALITY ( R in aVL ,
Sokolow-Veronica , [place] product )
ABNORMAL ECG
WHEN COMPARED WITH ECG OF 09-NOV-2023 20:01,
PREMATURE VENTRICULAR COMPLEXES ARE NO LONGER PRESENT
ST NO LONGER ELEVATED IN ANTERIOR LEADS
T WAVE INVERSION NOW EVIDENT IN INFERIOR LEADS
Confirmed by MD JEFFREY, UNRULY Metz ([id number]) on 10/20/2024 11:13:36 AM
HCT There are mild changes of cortical atrophy, unchanged
ASSESSMENT & PLAN
Sz episode
- c/w Keppra
- Neuro evaluation
Subacute CVA with Lt sided weakness
- suspect Rt MCA territory strake
- NEG HCT
- cannot have contrast CTA of H & N due to contrast allergy
- Brain MRI in AM
- Neuro consult
HLD
- c/w hi intensity atorvastatin 80 mg qpm
IDDMT2
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
- subtherapeutic INR at 1.6
- Titrate warfarin to goal
Est ASCVD with PAD and CVA HX
B/L TMT amputation of both feet
DVT Px: Warfarin
Code: Full code
IP TLM
--- NOTE | 2024-10-20 14:12 | PHANOTE ---
med rec note- unable to get medication list from patient, he keeps telling everyone he gave the list to someone and they wrote it down. unable to find patient family md, patient to [facility] in [place] but the facility is out of business , no current
pdmp or ecw.
[2024-10-20 14:43] VITALS: BMI 29.7
[2024-10-20 14:44] VITALS: BP 156/84
--- NOTE | 2024-10-20 14:45 | PTCARENOTE ---
Received patient from ED. Patient is s/p seizure on bus earlier this morning. Also presents with neuro deficits. Per ED documentation, NIH was 5 in ED.
During my assessment, NIH 12. Notified neurology and covering hospitalist. Per hospitalist, NIH 12 was known. Marlena, Neurologist, to bedside after my initial assessment.
--- NOTE | 2024-10-20 15:16 | CON.NEURO ---
Addendum entered and electronically signed by Ralph Mendiola MD 10/20/24 17:57:
Studies reviewed.
I have personally examined the patient. I reviewed and agree with the INSTRUCTIONAL DEVELOPER's Note.
My addenda:
Awake, alert, interactive. Defensive at times. No acute distress.
Speech intact.
Follows 2-step requests w/o difficulty. No tremor.
Extra-ocular movements grossly intact.
Facial movements full and symmetric. Hearing intact to normal conversational volume.
Neck: full ROM.
Chest: no dyspnea
Heart: no JVD
Ext: (-) Clubbing, (-) Cyanosis, (-) Edema
IMPRESSIONS/RECOMMENDATIONS:
Abrupt recurrence of left hemibody weakness, textbook description of prodrome prior to seizure.
Most likely diagnosis is functional neurological disorder with differential diagnosis including Ruddy's paralysis, unlikely for the duration of time the patient has been experiencing the symptoms. Based on the suggestion that the patient's pharmacy
has not been filling his usual anticoagulation, this is concerning for either conversion disorder or somatic disorder. Additionally the patient's variable history is concerning for functional neurological disorder
Again, as into 2023, recommend patient have an increase from levetiracetam 1000 mg twice a day to dosing of 1500 mg/day and check level
Again, would not check EEG as this will not change therapy as the patient is not currently experiencing ongoing seizure
Change anticoagulation to allow for INR between 2-3 for the patient's supposed protein DIRECTOR ECONOMIC deficiencies
D/W patient
All questions answered.
Will continue to follow peripherally.
Original Note:
Documented by User: Nicki Tomlin NP 10/20/24 17:39
Neuro Assessment/Plan
Assessment
[facility]
[address] [place], [place] [address] [address]
[phone]
Patient Name: LESLIE RODRIGUEZ
Patient is a 59-year-old male with past medical history significant for hypertension, hyperlipidemia, seizures and DM II who presented to [facility] ED for evaluation s/p seizure while riding on bus.
Head CT with mild changes of cortical atrophy, unchanged
ECG normal sinus rhythm
Hgb A1C and lipid panel pending
Plan
Impressions: Left arm and leg weakness following loss of consciousness preceded by foul smell. Patient with repeated episodes of this with the recent episode in July of 2023 as well as March 2023 and July 2008. Most likely diagnoses are
either epilepsy with postictal/Ruddy's paralysis versus functional neurologic disorder. Given repeated similar nature of the events I do not think that it is possible that this represents stroke or cervical spine abnormality, if this is a stroke, he
is already anticoagulated with warfarin and would not change treatment.
-no need for brain MRI as this would not change treatment
-increase levetiracetam to 1500 mg BID and check level
-continue anticoagulation with warfarin and dose according to INR
-goal normotension
-goal normoglycemia with hgb A1C<7, current hgb A1C pending
-lipid panel pending, goal LDL<70 continue rosuvastatin 40 mg daily for now
-PT/OT evaluations
-DVT prophylaxis
-seizure precautions
-neurochecks and NIHSS per unit guidelines
-stroke education material to be given
Plan of care discussed with Dr. Mendiola, nurse and patient.
Consultation
Order
Date of Consultation: 10/20/24
Requesting Provider: hospitalist/ Joslyn COCHRAN
Reason for Consult: left upper extremity weakness
Subjective/Objective
Subjective Data
Date of Service: October 20, [address] Munoz neurology consultation note from 07/15/2023 'Patient is a 58-year-old right-handed man with a past medical history of sarcoidosis, epilepsy, diabetes, protein C&S deficiency on Coumadin presented to hospital after loss of
consciousness episode and subsequent left arm and leg weakness after being on public transportation bus yesterday morning.
Patient reports has been in his normal state of health recently, has been taking levetiracetam 1000 mg twice daily. Says that he awoke yesterday morning feeling okay with no weakness and was on a bus and remembers a foul-smelling seafood like smell
and asked people about it and the next thing he remembers he was on the floor of the bus receiving help from others, medical services were called and patient was brought to the hospital. Patient reports that since this event he has had left arm
and leg weakness. No headache or neck pain. He reports he does think that he has had this happen in the past before with long recovery of left arm and leg weakness. He is not sure when this has happened previously.
Reports that to the best of his knowledge he has had seizures since childhood he has been on other seizure medications including Dilantin which she had difficulty tolerating as well as lacosamide. There is family history of seizure and one of his
grandsons.
Patient had a hospitalization here 04/08/23 to 04/11/23 for similar symptoms where he had had a seizure in public transportation and then had left-sided hemiparesis without involvement of the face. Patient does not recollect this event and strongly
asserts that he does not think that he was in this hospital in March but may have been another hospital. During this hospitalization patient declined MRI as well as EEG testing has significant claustrophobia for MRI of the brain, patient
ultimately discharged home. Neurology had seen the patient during his hospitalization and there was concern for a functional neurologic disorder.
There is documentation of neurology consultation in July 2008 where the patient had a syncopal episode with thin weakness in the left arm and leg following this event. The weakness improved and was ambulating without difficulty and was discharged.'
Patient reports that he lives in [place] but was taking the bus to the visit his daughter this morning who lives in [place]. The patient reportedly had his typical aura prior to the seizure which to him is smelling rotten fish. Patient
reports that he then believes he had a tonic-clonic seizure. Patient reports that he was sitting in a chair and did not fall to the ground but did lose consciousness for an unknown period of time. Patient was noted to urinate on himself according
to EMS. Admits to being post ictal after seizure. trash truck driver stopped and called 911. On arrival, the patient denies headache, dizziness, vision changes, chest pain, shortness of breath, abdominal pain, nausea, vomiting. Patient states that he has
noticed weakness in his left upper extremity that started today, but also states the weakness comes and goes. He also reports that he is wheelchair bound. He is currently taking levetiracetam 1,000 mg daily and 1500 mg at night and states he has
been compliant. Head CT showed mild changes of cortical atrophy which is unchanged. Currently on warfarin and current INR 1.61. Hgb A1C and lipid panel is pending.
Objective Data
Vital Signs
Temp Pulse Resp BP Pulse Ox
99.2 F 70 16 156/84 94
10/20/24 14:44 10/20/24 14:44 10/20/24 14:44 10/20/24 14:44 10/20/24 14:44
Lab Results
10/20/24 11:19
PT 19.4 Sec (11.4-14.6) H 10/20/24 11:19
INR 1.61 10/20/24 11:19
Sodium 138 mmol/L (135-145) 10/20/24 11:19
Potassium mmol/L (3.5-5.1) 10/20/24 11:19
BUN 27 mg/dl (9-20) H 10/20/24 11:19
Glucose 97 mg/dl (70-99) 10/20/24 11:19
Calcium 8.9 mg/dl (8.4-10.2) 10/20/24 11:19
Patient Allergies
fondaparinux (From Arixtra) Allergy (Severe, Verified 10/20/24 09:35)
Hives
apixaban Allergy (Verified 10/20/24 09:35)
Anaphylaxis
enoxaparin sodium (From Lovenox) Allergy (Verified 10/20/24 09:35)
RASH AT INJECTION SITE
Iodinated Contrast Media (IV Dye, Iodine Containing) Allergy (Verified 10/20/24 09:35)
HIVES,VOMITING
meperidine HCl (From Demerol) Allergy (Verified 10/20/24 09:35)
PT DENIES?
phenytoin sodium (From Dilantin) Allergy (Verified 10/20/24 09:35)
SEVERE THROAT CLOSING'
pneumococcal vaccine Allergy (Verified 10/20/24 09:35)
Vomiting
CVA Assessment
NIH Stroke Score
Level of Consciousness: 0 - Alert
LOC Questions: 0-Answers both correctly
LOC Commands: 0-Performs both correctly
Best Horizontal Gaze: 0-Normal
Visual Park: 0=Normal, no visual loss
Facial Palsy: 0=Normal, symmetrical
Motor - Right Arm: 0=No drift 10 seconds
Motor - Left Arm: 4=No movement
Motor - Right Le-Drift < 5 seconds
Motor - Left Le-Partial vs. gravity
Limb Ataxia: 2-Present in two limbs
Sensation: 0-Normal
Best Language: 0-No aphasia
Dysarthria: 0-Normal
Extinction and Inattention: 0-No abnormality
NIH Total Score:: 9
Tenecteplase Contraindications
Inclusion and Exclusion criteria reviewed: Yes
Reasons for NON-Tx with Thrombolytics ABSOLUTE Exclusions: Patient taking oral anticoagulant and last dose within 48 hours
IAT Contraindications: >6 hrs from onset/last seen normal
Modified Baraga Score (MRS)
-
Modified Andrea Scale (mRS): Moderately severe disability. Unable to attend to bodily needs/walk.
Score: 4
Review of Systems
-
History Source: Patient
All other systems: Reviewed and negative
Physical Exam
-
General: Comfortable and Older than Stated Age
Neck: Full Range of Motion
Respiratory: No Dyspnea
Cardiac: No JVD
GI: Non-distended
Skin: Unremarkable
Extremities: No Clubbing, No Cyanosis and No Edema
Psych: Other (unreliable historian)
Extended Neurological Exam
Attention Span & Concentration: Awake, Alert, Interactive and No Difficulty with 2 Step Request
Memory: Vague and Incomplete Historian
Speech: Quality Unremarkable, Quantity Unremarkable and Rate of Production Unremarkable
Cranial Nerve II: Left Eye: Visual Park Grossly Intact
Cranial Nerve II: Right Eye: Visual Park Grossly Intact
Cranial Nerves III, IV, : Extraocular Movement: Extraocular Movement Full in all Directions
Cranial Nerve VII: Facial Symmetry: Normal Facial Symmetry
Cranial Nerve XII: Tongue Protusion: Midline
Muscle Strength, Overall: Reduced on Right (RLE 4/5) and Reduced on Left (LUE 0/5, LLE 2/5)
Muscle Bulk & Tone: Bulk Unremarkable and Tone Unremarkable
Deep Tendon Reflexes: Trace Throughout
Coordination: [id number] Testing Unremarkable
Medications
-
Active Medications
Generic Name Dose Route Start Last Admin
Trade Name Freq PRN Reason Stop Dose Admin
Acetaminophen 650 mg 10/20/24 14:18
Acetaminophen 325 Mg Tablet PO 11/17/24 14:17
Q4HPRN PRN
MARTINS, mild pain, or temp >100.4F
Carvedilol 12.5 mg 10/20/24 20:00
Carvedilol 12.5 Mg Tablet PO 11/17/24 19:59
BID JAGRUTI
Dextrose 12.5 grams 10/20/24 14:18
Dextrose 50% (0.5 Grams/Ml) 50 Ml Syringe IV 11/17/24 14:17
[id number] PRN
hypoglycemia
Protocol
Furosemide 20 mg 10/21/24 08:00
Furosemide 20 Mg Tablet PO 11/18/24 07:59
DAILY JAGRUTI
Glucagon 1 mg 10/20/24 14:18
Glucagon 1 Mg Vial IM 11/17/24 14:17
PRN PRN
hypoglycemia
Protocol
Hydroxychloroquine Sulfate 400 mg 10/20/24 20:00
Hydroxychloroquine 200 Mg Tablet PO 11/17/24 19:59
BID JAGRUTI
Insulin Aspart 0 units 10/20/24 16:30
Insulin Aspart Low Resistance 300 Units/3 Ml Pen.Injctr SC 11/17/24 16:29
AC JAGRUTI
Protocol
Levetiracetam 1,000 mg 10/21/24 08:00
Levetiracetam 500 Mg Regular Release Tablet PO 11/18/24 07:59
DAILY JAGRUTI
Prednisone 20 mg 10/21/24 08:00
Prednisone 20 Mg Tablet PO 11/18/24 07:59
DAILY JAGRUTI
Rosuvastatin Calcium 40 mg 10/21/24 08:00
Rosuvastatin (Crestor) 40 Mg Tablet PO 11/18/24 07:59
DAILY JAGRUTI
Sacubitril/Valsartan 1 tab 10/20/24 20:00
Sacubitril 24 Mg/Valsartan 26 Mg (Entresto) Tab PO 11/17/24 19:59
BID JAGRUTI
Sodium Chloride 0 flush 10/20/24 15:00
Sodium Chloride 0.9% (Flush) Syringe IV 11/17/24 14:59
PER PROTOCOL JAGRUTI
Home Medications
�Medication �Instructions �Recorded
hydroxychloroquine 200 mg tablet 400 mg PO BID sarcoidosis 10/17/14
prednisone 20 mg tablet 20 mg PO DAILY sarcoidosis 10/17/14
levetiracetam 1,000 mg tablet 1,000 mg PO DAILY Seizures 07/16/23
carvedilol 12.5 mg tablet (Coreg) 12.5 mg PO BID 10/20/24
furosemide 20 mg tablet (Lasix) 20 mg PO DAILY 10/20/24
insulin lispro 100 unit/mL 1 sliding scale dose SC AC 10/20/24
subcutaneous solution
rosuvastatin 40 mg tablet (Crestor) 40 mg PO DAILY 10/20/24
sacubitril 24 mg-valsartan 26 mg 1 tab PO BID 10/20/24
tablet (Entresto)
warfarin 7.5 mg tablet mg PO 10/20/24
Past History
Past History
ED Past Medical History: Arrthythmia (AFib), CHF, CVA, Seizures and Other (Protein C and Protein S abnormality, lupus, PE, DVT, neuropathy, sarcoidosis, claustrophobia)
ED Past Surgical History: Other ([place] filter, all toes surgically removed)
Family/Social History
Tobacco: Smoker
Alcohol: None
Drug: None
Personal:
Living: with family
Family History: Other (Reviewed and non-contributory)

Documented by User: Ralph Mendiola MD 10/20/24 17:52
Neuro Assessment/Plan
Assessment
Patient is a 59-year-old male with past medical history significant for hypertension, hyperlipidemia, seizures and DM II who presented to [facility] ED for evaluation s/p seizure while riding on bus.
Head CT with mild changes of cortical atrophy, unchanged
ECG normal sinus rhythm
Hgb A1C and lipid panel pending
CVA Assessment
NIH Stroke Score
NIH Total Score:: 9
Modified Baraga Score (MRS)
-
Score: 4
[2024-10-20 15:43] VITALS: BMI 29.7
[2024-10-20 15:53] LABS: ALT (SGPT) 19 U/L (0-50); AST (SGOT) 26 U/L (17-59); Albumin 3.4 g/dl (3.5-5.0); Alkaline Phosphatase 60 U/L (38-126); Blood Urea Nitrogen 25 mg/dl (9-20); Calcium 8.7 mg/dl (8.4-10.2); Carbon Dioxide 24 mmol/L (22-30); Chloride 107 mmol/L (98-107); Estimated Creatinine Clearance 106 ml/min; Glucose 59 mg/dl (70-99); Potassium 3.9 mmol/L (3.5-5.1); Sodium 137 mmol/L (135-145); Total Bilirubin 0.6 mg/dl (0.2-1.3); Total Protein 6.5 g/dl (6.3-8.2); eGFR > 60.00
[2024-10-20] MEDS: NOVOLOG FLEXPEN-LOW RESISTANCE SC (15:58)
[2024-10-20 16:04] LABS: Glucose - Point of Care 77 mg/dl (70-99)
--- NOTE | 2024-10-20 16:19 | PTOTSP ---
Dysphagia Evaluation
No signs of oral/pharyngeal dysphagia observed.
Recommend:
1. IDDSI 7 Regular, Thin
2. Medications as best tolerated
3. General aspiration precautions
4. Cognitive linguistic assessment
[2024-10-20 19:30] VITALS: BP 106/52
[2024-10-20] MEDS: KEPPRA 1500 MG PO (20:12)
[2024-10-20] MEDS: PLAQUENIL 400 MG PO (20:13)
[2024-10-20] MEDS: COREG 12.5 MG PO (20:13)
[2024-10-20] MEDS: ENTRESTO 24 MG/26 MG 1 TAB PO (20:13)
[2024-10-20 22:18] LABS: Glucose - Point of Care 115 mg/dl (70-99)
[2024-10-20 23:35] VITALS: BP 87/50
[2024-10-20 23:40] VITALS: BP 98/61
[2024-10-21] VITALS (8 sets, daily range): BP systolic 93–141; BP diastolic 35–78; PULSE 69; O2SAT 95–97; BMI 29.5
[2024-10-21 00:07] LABS: Urine Albumin 2+ (Neg - Trace); Urine Bilirubin Negative (Negative); Urine Character Clear (Clear); Urine Color Amber; Urine Glucose Negative (Negative); Urine Ketone Negative (Negative); Urine Leukocyte 1+ (Negative); Urine Nitrite Negative (Negative); Urine Occult Blood 3+ (Negative); Urine Specific Gravity 1.025 (<1.030); Urine Urobilinogen 1+ (Neg - 1+)
[2024-10-21 00:59] LABS: Urine Amorphous Seen; Urine Mucus Many; Urine Squamous Cell >30 /LPF (Few); Urine Urothelial Cell >30 /LPF (FEW)
[2024-10-21 01:00] LABS: Urine Bacteria Moderate (Negative)
[2024-10-21 01:01] LABS: Urine Red Blood Cell 16-20 /HPF (0-2)
[2024-10-21] MEDS: KEPPRA 1500 MG PO ×2 (07:56→20:00)
[2024-10-21] MEDS: PLAQUENIL 400 MG PO ×2 (07:56→20:00)
[2024-10-21] MEDS: DELTASONE 20 MG PO (07:56)
[2024-10-21] MEDS: CRESTOR 40 MG PO (07:56)
[2024-10-21 07:58] LABS: Glucose - Point of Care 112 mg/dl (70-99)
[2024-10-21] MEDS: NOVOLOG FLEXPEN-LOW RESISTANCE SC (08:00)
[2024-10-21 08:04] LABS: HDL Cholesterol 54 mg/dl; LDL Cholesterol, Calculated 52 mg/dl; Total Cholesterol 127 mg/dl (50-199); Triglyceride 106 mg/dl (10-149); Very Low Density Lipoprotein 21 mg/dl (0-30)
[2024-10-21] MEDS: COREG PO (08:04)
--- NOTE | 2024-10-21 08:29 | W.PN.NEURO.1 ---
Addendum entered and electronically signed by Ralph Mendiola MD 10/21/24 10:53:
Studies reviewed.
I have personally examined the patient. I reviewed and agree with the HOT PLATE PRESS OPERATOR's Note.
My addenda:
Awake, alert, interactive. No acute distress.
Speech intact.
Follows 2-step requests w/o difficulty. No tremor.
Extra-ocular movements grossly intact.
Facial movements full and symmetric. Hearing intact to normal conversational volume.
Normal right UE .
Neck: full ROM.
Chest: no dyspnea
Heart: no JVD
Ext: (-) Clubbing, (-) Cyanosis, (-) Edema
IMPRESSIONS/RECOMMENDATIONS:
Abrupt onset of left arm and weakness and reported prodrome of seizure leading to continued weakness far beyond normal Ruddy's paralysis. The most likely diagnosis is functional neurological disorder in light of the patient's similar symptoms a year
ago and deflections away from adequate testing
Would check carotid ultrasound as outpatient to confirm that there is no abnormality producing symptomatology
Increased levetiracetam dosing
Case management evaluation may be of benefit as an outpatient
D/W patient
Will continue to follow as outpatient.
Original Note:
Today's Communication / Plan
-
-patient refusing brain MRI due to claustrophobia, obtain new head CT cannot get CTA head and neck due to iodine allergy, will order carotid US
-continue levetiracetam to 1500 mg BID, level pending
-continue anticoagulation with warfarin
-goal normotension
-goal normoglycemia with hgb A1C<7, current hgb A1C 9.7
-LDL 52, goal LDL<70 continue rosuvastatin 40 mg daily
-PT/OT evaluations
-DVT prophylaxis
-seizure precautions
-neurochecks and NIHSS per unit guidelines
-stroke education material to be given
Neuro Assessment/Plan
Assessment
Patient is a 59-year-old male with past medical history significant for hypertension, hyperlipidemia, seizures and DM II who presented to [facility] ED for evaluation s/p seizure while riding on bus.
Head CT with mild changes of cortical atrophy, unchanged
ECG normal sinus rhythm
Hgb A1C 9.7, Cholesterol 127, LDL 52
Plan
Impressions: Left arm and leg weakness following loss of consciousness preceded by foul smell. Patient with repeated episodes of this with the recent episode in July of 2023 as well as March 2023 and July 2008. Most likely diagnoses are
either epilepsy with postictal/Ruddy's paralysis versus functional neurologic disorder. Given repeated similar nature of the events I do not think that it is possible that this represents stroke or cervical spine abnormality, if this is a stroke, he
is already anticoagulated with warfarin and would not change treatment.
-patient refusing brain MRI due to claustrophobia, obtain new head CT, cannot get CTA head and neck due to iodine allergy, will order carotid US
-continue levetiracetam to 1500 mg BID, level pending
-continue anticoagulation with warfarin
-goal normotension
-goal normoglycemia with hgb A1C<7, current hgb A1C 9.7
-LDL 52, goal LDL<70 continue rosuvastatin 40 mg daily
-PT/OT evaluations
-DVT prophylaxis
-seizure precautions
-neurochecks and NIHSS per unit guidelines
-stroke education material to be given
Plan of care discussed with Dr. Mendiola and patient all questions encouraged and answered.
Subjective/Objective
Subjective Data
Date of Service: October 21, 2024
Feels about the same. Patient states he still cannot move his left arm. Denies seizures.
Objective Data
Vital Signs
Temp Pulse Resp BP Pulse Ox
99.7 F 59 18 93/44 92
10/21/24 07:41 10/21/24 07:41 10/21/24 07:41 10/21/24 07:41 10/21/24 07:41
Lab Results
10/20/24 11:19
10/20/24 15:08
PT 19.4 Sec (11.4-14.6) H 10/20/24 11:19
INR 1.61 10/20/24 11:19
Sodium 137 mmol/L (135-145) 10/20/24 15:08
Potassium 3.9 mmol/L (3.5-5.1) 10/20/24 15:08
BUN 25 mg/dl (9-20) H 10/20/24 15:08
Glucose 59 mg/dl (70-99) L 10/20/24 15:08
Calcium 8.7 mg/dl (8.4-10.2) 10/20/24 15:08
LDL Cholesterol, Calc 52 mg/dl 10/21/24 07:33
Patient Allergies
fondaparinux (From Arixtra) Allergy (Severe, Verified 10/20/24 09:35)
Hives
tomato Allergy (Severe, Verified 10/20/24 16:10)
Anaphylaxis
apixaban Allergy (Verified 10/20/24 09:35)
Anaphylaxis
enoxaparin sodium (From Lovenox) Allergy (Verified 10/20/24 09:35)
RASH AT INJECTION SITE
Iodinated Contrast Media (IV Dye, Iodine Containing) Allergy (Verified 10/20/24 09:35)
HIVES,VOMITING
meperidine HCl (From Demerol) Allergy (Verified 10/20/24 09:35)
PT DENIES?
phenytoin sodium (From Dilantin) Allergy (Verified 10/20/24 09:35)
SEVERE THROAT CLOSING'
pneumococcal vaccine Allergy (Verified 10/20/24 09:35)
Vomiting
Review of Systems
-
History Source: Patient
Constitutional: Weakness (LUE weakness)
EENT: No Symptoms Reported
Respiratory: No Symptoms
Cardiac: No Symptoms
Abdomen/GI: No Symptoms
Genitourinary: No Symptoms
Musculoskeletal: No Symptoms
Neuro: Weakness (LUE weakness)
Physical Exam
-
General: No Apparent Distress, Comfortable and Older than Stated Age
Neck: Full Range of Motion
Respiratory: No Dyspnea
Cardiac: No JVD
GI: Non-distended
Skin: Unremarkable
Extremities: No Clubbing, No Cyanosis and No Edema
Psych: Other (unreliable historian)
Extended Neurological Exam
Mood & Affect: Other (irritable )
Attention Span & Concentration: Awake, Alert, Interactive and No Difficulty with 2 Step Request
Memory: Vague and Incomplete Historian
Speech: Quality Unremarkable, Quantity Unremarkable and Rate of Production Unremarkable
Cranial Nerve II: Left Eye: Visual Park Grossly Intact
Cranial Nerve II: Right Eye: Visual Park Grossly Intact
Cranial Nerves III, IV, : Extraocular Movement: Extraocular Movement Full in all Directions
Cranial Nerve VII: Facial Symmetry: Normal Facial Symmetry
Cranial Nerve XII: Tongue Protusion: Midline
Muscle Strength, Overall: Reduced on Right (RLE 4/5) and Reduced on Left (LUE 0/5, LLE 2/5)
Muscle Bulk & Tone: Bulk Unremarkable and Tone Unremarkable
Deep Tendon Reflexes: Trace Throughout
Coordination: Jblnpu-nqki-zbnanq Testing Unremarkable
[2024-10-21] MEDS: COREG 3.125 MG PO ×2 (08:44→20:00)
[2024-10-21 08:47] LABS: Glycohemoglobin (HgbA1c) 9.7 % (4.0-5.6)
--- NOTE | 2024-10-21 09:13 | W.PN.HOSP.TC ---
Today's Communication/Plan
-
consult senior case manager
Assessment / Plan
Assessment / Plan
Physical Exam
General: Well Developed, Well Nourished, No Apparent Distress, Comfortable and Conversant
HEENT: Normocephalic, Moist mucous membranes, Atraumatic, Nose Appears Normal and Ears Appear Normal
Respiratory: Clear and Non Labored Respirations
Cardiac: S1/S2 and Regular Rhythm
GI: Soft, Non Tender, Non Distended and Normal Bowel Sounds
Genito-urinary: No Phelan
Musculoskeletal: No Clubbing, No Cyanosis, No Edema and Other (all toes previously amputated )
Skin: IV/Catheter Site
Neuro: Awake, Alert, AO x 3 , No Slurred Speech, he followed commands.
Psych: Calm,
Sz episode
- c/w Keppra
- No new signs
CT head : no acute findings
Pt refuses MRI brain
Pt refused blood work but later agreed.
d/w neurology, recommend to c/w higher dose of Keppra and OP follow up, ok to discharge. Not new stroke per neurology
LDL 52, goal LDL<70 continue rosuvastatin 40 mg daily. continue anticoagulation with warfarin
# Subtherapeutic INR
will give stat high dose of Coumadin now
# Patient complained of chronic pain in his feet and both knees. No swelling noted or erythema in both lower extremities/ joints. He reported that he was on chronic Percocet 10 mg dose every 4-6 hours at home regularly. Reviewing PDMP by pharmacy
and myself showed last Percocet script was in April 2024. Patient was given tramadol few pills in June 2024. No other opioid drugs given since then in the system. Patient is not a halfway patient and he is fully oriented/lucid . I
informed the patient and he became upset( he said:you are accusing me of lying), We explained to the patient that Percocet was a controlled substance with multiple side effects especially neurological including seizures, we have to confirm home
dose before giving the medication if it was a home medicine. I offered to get medications information from his family/ and he agreed. Called / no answer and left voicemail. I requested his daughter's number but he refused to provide it. I
updated the bowling alley floors installer.
HLD
-c/w home statin.
IDDMT2
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
- subtherapeutic INR at 1.6
- Titrate warfarin to goal
Est ASCVD with PAD and CVA HX
B/L TMT amputation of both feet
Total time spent to see the patient, examine the patient, review data and lab result, discuss treatment plan with patient, nursing staff around 55 minutes
Anticipated Discharge: Today
Subjective/Interval History
-
Date of Service: October 21, 2024
No chest pain
No sob
He wants to be on Percocet ( see note)
Objective Data
-
Vital Signs:
Vital Signs
Temp Pulse Resp BP Pulse Ox
99.7 F 59 18 93/44 92
10/21/24 07:41 10/21/24 07:41 10/21/24 07:41 10/21/24 07:41 10/21/24 07:41
I&O
10/20/24 10/21/24 10/22/24
06:59 06:59 06:59
Intake Total 720 / 720
Output Total 350 / 350
Balance 370 / 370
[2024-10-21 10:28] LABS: Urine Albumin 2+ (Neg - Trace); Urine Bilirubin Negative (Negative); Urine Character Clear (Clear); Urine Color Yellow; Urine Glucose Negative (Negative); Urine Ketone 1+ (Negative); Urine Leukocyte 1+ (Negative); Urine Nitrite Negative (Negative); Urine Occult Blood 2+ (Negative); Urine Specific Gravity 1.025 (<1.030); Urine Urobilinogen Negative (Neg - 1+)
[2024-10-21 10:54] LABS: Amphetamines Negative (Negative); Barbiturates Negative (Negative); Benzodiazepines Negative (Negative); Buprenorphine Negative (Negative); Cocaine Positive (Negative); Marijuana Negative (Negative); Methadone Negative (Negative); Methamphetamines Negative (Negative); Opiates Negative (Negative); Phencyclidine Negative (Negative); Tricyclic Antidepressants Negative (Negative)
[2024-10-21] MEDS: COUMADIN 7.5 MG PO (11:06)
[2024-10-21 11:49] LABS: Glucose - Point of Care 301 mg/dl (70-99)
[2024-10-21 11:53] LABS: Fentanyl, Urine Negative (Negative)
[2024-10-21] MEDS: NOVOLOG FLEXPEN-LOW RESISTANCE 4 UNITS SC (12:48)
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
[2024-10-21 17:05] LABS: Glucose - Point of Care 429 mg/dl (70-99)
[2024-10-21] MEDS: NOVOLOG FLEXPEN-LOW RESISTANCE 6 UNITS SC (17:40)
[2024-10-21 19:03] LABS: Glucose 351 mg/dl (70-99)
[2024-10-21 21:27] LABS: Glucose - Point of Care 256 mg/dl (70-99)
[2024-10-21] MEDS: LANTUS 0.25 UNITS SC (21:48)
[2024-10-22 03:27] VITALS: BP 104/50
[2024-10-22 07:44] VITALS: BP 128/63
[2024-10-22 08:00] LABS: Glucose - Point of Care 160 mg/dl (70-99)
[2024-10-22] MEDS: PLAQUENIL 400 MG PO ×2 (08:00→19:53)
[2024-10-22] MEDS: LASIX 20 MG PO (08:00)
[2024-10-22] MEDS: DELTASONE 20 MG PO (08:00)
[2024-10-22] MEDS: COREG 3.125 MG PO ×2 (08:00→19:53)
[2024-10-22] MEDS: CRESTOR 40 MG PO (08:00)
[2024-10-22] MEDS: KEPPRA 1500 MG PO ×2 (08:00→19:53)
--- NOTE | 2024-10-22 09:26 | W.PN.HOSP.TC ---
Today's Communication/Plan
-
Possible DC if bed becomes available
Await INR result
Pt tends to refuse blood work at times
will adjust Coumadin when INR is available
Assessment / Plan
Assessment / Plan
Physical Exam
General: Well Developed, Well Nourished, No Apparent Distress, Comfortable and Conversant
HEENT: Normocephalic, Moist mucous membranes, Atraumatic, Nose Appears Normal and Ears Appear Normal
Respiratory: Clear and Non Labored Respirations
Cardiac: S1/S2 and Regular Rhythm
GI: Soft, Non Tender, Non Distended and Normal Bowel Sounds
Genito-urinary: No Phelan
Musculoskeletal: No Clubbing, No Cyanosis, No Edema and Other (all toes previously amputated )
Skin: IV/Catheter Site
Neuro: Awake, Alert, AO x 3 , No Slurred Speech, he followed commands.
Psych: Calm,
Sz episode
- c/w Keppra
- No new signs
CT head : no acute findings
Pt refuses MRI brain
Pt refused blood work but later agreed.
d/w neurology, recommend to c/w higher dose of Keppra and OP follow up, ok to discharge. Not new stroke per neurology
LDL 52, goal LDL<70 continue rosuvastatin 40 mg daily. continue anticoagulation with warfarin
# Subtherapeutic INR
Await INR result
Pt tends to refuse blood work at times
will adjust Coumadin when INR is available
# Patient complained of chronic pain in his feet and both knees. No swelling noted or erythema in both lower extremities/ joints. He reported that he was on chronic Percocet 10 mg dose every 4-6 hours at home regularly. Reviewing PDMP by pharmacy
and myself showed last Percocet script was in April 2024. Patient was given tramadol few pills in June 2024. No other opioid drugs given since then in the system. Patient is not a detention patient and he is fully oriented/lucid . I
informed the patient and he became upset( he said:you are accusing me of lying), We explained to the patient that Percocet was a controlled substance with multiple side effects especially neurological including seizures, we have to confirm home
dose before giving the medication if it was a home medicine. I offered to get medications information from his family/ and he agreed. Called / no answer and left voicemail. I requested his daughter's number but he refused to provide it. I
updated the floor sanding machine operator.
HLD
-c/w home statin.
IDDMT2
Poorly controlled. HGB A1C 9.7
Increase dose of Lantus and added Pre-meal insulin
c/w ISS
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
Await INR result
Est ASCVD with PAD and CVA HX
B/L TMT amputation of both feet
Total time spent to see the patient, examine the patient, review data and lab result, discuss treatment plan with patient, nursing staff around 55 minutes
Anticipated Discharge: Today
Subjective/Interval History
-
Date of Service: October 22, 2024
No chest pain
No sob
No seizure
Objective Data
-
Labs:
Laboratory Results
10/22/24
06:00
PT Pending
INR Pending
Vital Signs:
Vital Signs
Temp Pulse Resp BP Pulse Ox
97.9 F 60 18 128/63 97
10/22/24 07:44 10/22/24 07:44 10/22/24 07:44 10/22/24 07:44 10/22/24 08:00
I&O
10/21/24 10/22/24 10/23/24
06:59 06:59 06:59
Intake Total 720 / 720 1560 / 1560
Output Total 350 / 350 500 / 500
Balance 370 / 370 1060 / 1060
[2024-10-22] MEDS: NOVOLOG FLEXPEN-HIGH RESISTANCE SC (09:30)
--- NOTE | 2024-10-22 10:03 | CM ---
Addendum entered by Eliza Jamison 10/22/24 14:42:
CM called to [employer] and auth request is still pending.
Addendum entered by Eliza Jamison 10/22/24 12:18:
Auth faxed to [employer] at /phone . Awaiting response.
Original Note:
Patient seen at bedside and he agreed to [facility] [place] [facility] . CM will call to start auth. CM updated physician and CM will continue to follow for discharge planning needs.
Plan; SNF; auth
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
[2024-10-22] MEDS: NOVOLOG FLEXPEN-HIGH RESISTANCE 1 UNITS SC (10:30)
[2024-10-22 11:21] VITALS: BP 113/72
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
[2024-10-22 11:59] LABS: Glucose - Point of Care 260 mg/dl (70-99)
--- NOTE | 2024-10-22 12:00 | PTCARENOTE ---
10/22- Performed NIH assessment again. This RN walked into room to find patient's LLE straightened out on bed fully extended. Before he knew I was there, he bent it up into a propped up position. When I entered I asked if he got his movement back.
He stated he didn't, and that he was just supporting it up. He then held his leg with his RUE. He refused to move his LLE during the NIH assessment, stating he is unable to move it and cannot feel it either. NIH was an 11 at this time based on
current physical assessment and patient's actions.
[2024-10-22] MEDS: NOVOLOG FLEXPEN-HIGH RESISTANCE 7 UNITS SC (12:21)
[2024-10-22 15:28] VITALS: BP 118/59
--- NOTE | 2024-10-22 16:00 | PTCARENOTE ---
10/22- During this NIH assessment, patient still states he is unable to move either lower extremity. However I do see voluntary movement in both feet and ankles. Patient is responsive to tactile stimuli in both feet as evidenced by retraction of
foot to tactile stimuli, despite denying it. NIH score is currently a 9.
[2024-10-22 16:23] LABS: Glucose - Point of Care 340 mg/dl (70-99)
[2024-10-22] MEDS: NOVOLOG FLEXPEN-HIGH RESISTANCE 10 UNITS SC (16:31)
--- NOTE | 2024-10-22 17:30 | PTCARENOTE ---
Addendum entered by Nohemi Gallagher RN 10/22/24 18:34:
10/22- This RN returned to room to find bed alarm on floor. Patient states he will not have his rights violated with a bed alarm. He pays me, and he tells me what he will and will not do. I can speak to his production machine tender if I have a problem with him
taking away the bed alarm. Advised again on activity restrictions and safety. Plugged bed alarm back in. Patient states we cannot treat him like this, and he will report us for violating his rights. Continue to monitor.
Original Note:
10/22- This RN went into check on patient to find him sitting on side of bed with both feet on floor. He stated he is able to do it with just his R-arm. Advised on activity restrictions and fall risk. He verbalized understanding and said he can't
stand or move anyway.
[2024-10-22 19:00] VITALS: BP 149/80
[2024-10-22 21:26] LABS: Glucose - Point of Care 239 mg/dl (70-99)
[2024-10-22] MEDS: LANTUS 0.25 UNITS SC (22:14)
[2024-10-22 23:00] VITALS: BP 113/60
[2024-10-22 23:38] LABS: Keppra (Levetiracetam) 25 ug/mL (10-40)
[2024-10-23] VITALS (7 sets, daily range): BP systolic 125–152; BP diastolic 61–83; PULSE 65; O2SAT 96; BMI 30.7
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
[2024-10-23] MEDS: COREG PO (07:32)
[2024-10-23] MEDS: CRESTOR PO (07:32)
[2024-10-23] MEDS: PLAQUENIL PO (07:33)
[2024-10-23] MEDS: LASIX PO (07:33)
[2024-10-23] MEDS: KEPPRA PO (07:33)
[2024-10-23] MEDS: DELTASONE PO (07:33)
[2024-10-23 08:23] LABS: Glucose - Point of Care 164 mg/dl (70-99)
[2024-10-23] MEDS: COREG 3.125 MG PO ×2 (08:39→19:50)
[2024-10-23] MEDS: CRESTOR 40 MG PO (08:39)
[2024-10-23] MEDS: DELTASONE 20 MG PO (08:39)
[2024-10-23] MEDS: PLAQUENIL 400 MG PO ×2 (08:39→19:51)
[2024-10-23] MEDS: KEPPRA 1500 MG PO ×2 (08:39→19:51)
[2024-10-23] MEDS: LASIX 20 MG PO (08:39)
[2024-10-23] MEDS: NOVOLOG FLEXPEN-HIGH RESISTANCE 2 UNITS SC (08:41)
--- NOTE | 2024-10-23 08:45 | PTCARENOTE ---
Assumed care of this pt. Pt appears anxious and upset. This RN established a good rapport, pt starting to calm down. Medications offered to pt. Pt took them along with insulin. Pt resting comfortably in the bed and waiting for breakfast. Will
continue with current plan.
--- NOTE | 2024-10-23 08:57 | W.PN.HOSP.TC ---
Today's Communication/Plan
-
INR check if pt agrees
Stable for discharge
Assessment / Plan
Assessment / Plan
Physical Exam
General: Well Developed, Well Nourished, No Apparent Distress, Comfortable and Conversant
HEENT: Normocephalic, Moist mucous membranes, Atraumatic, Nose Appears Normal and Ears Appear Normal
Respiratory: Clear and Non Labored Respirations
Cardiac: S1/S2 and Regular Rhythm
GI: Soft, Non Tender, Non Distended and Normal Bowel Sounds
Genito-urinary: No Phelan
Musculoskeletal: No Clubbing, No Cyanosis, No Edema and Other (all toes previously amputated )
Skin: IV/Catheter Site
Neuro: Awake, Alert, AO x 3 , No Slurred Speech, he followed commands.
Psych: Calm,
Sz episode
Patient feels back to baseline. He said he was ready to leave hospital.
- c/w Keppra
- No new signs
CT head done twice: no acute findings
Normal Keppra level
Carotid US no flow-limiting carotid stenosis. By velocity criteria, any internal carotid artery stenosis present is in the range of 0-49%.
Pt refuses MRI brain even with offering anxiety medicine.
Pt refused blood work but later agreed.
d/w neurology, recommend to c/w higher dose of Keppra and OP follow up, ok to discharge. Not new stroke per neurology, dc NIH protocol
LDL 52, goal LDL<70 continue rosuvastatin 40 mg daily. continue anticoagulation with warfarin
# Subtherapeutic INR
resumed Coumadin.
Pt tends to refuse blood work at times
# Patient complained of chronic pain in his feet and both knees. No swelling noted or erythema in both lower extremities/ joints. He reported that he was on chronic Percocet 10 mg dose every 4-6 hours at home regularly. Reviewing PDMP by pharmacy
and myself showed last Percocet script was in April 2024. Patient was given tramadol few pills in June 2024. No other opioid drugs given since then in the system. Patient is not a correction patient and he is fully oriented/lucid . I
informed the patient and he became upset ( he said:you are accusing me of lying), We explained to the patient that Percocet was a controlled substance with multiple side effects especially neurological including seizures, we have to confirm home
dose before giving the medication if it was a home medicine. I offered to get medications information from his family/ and he agreed. Called / no answer and left voicemail but no call back. I requested his daughter's number but he refused
to provide it stating she did not want to give it out. Urine drug screen positive for cocaine. I updated the floorleader.
HLD
-c/w home statin.
IDDMT2
Poorly controlled. HGB A1C 9.7
Increase dose of Lantus and added Pre-meal insulin
c/w ISS
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
Await INR result
Est ASCVD with PAD and CVA HX
B/L TMT amputation of both feet
Total time spent to see the patient, examine the patient, review data and lab result, discuss treatment plan with patient, nursing staff around 55 minutes
Anticipated Discharge: Today
Subjective/Interval History
-
Date of Service: October 23, 2024
He denies chest pain, sob, abdominal pain
Objective Data
-
Vital Signs:
Vital Signs
Temp Pulse Resp BP Pulse Ox
98.1 F 59 17 152/83 99
10/23/24 07:00 10/23/24 07:00 10/23/24 07:00 10/23/24 07:00 10/23/24 07:30
I&O
10/22/24 10/23/24 10/24/24
06:59 06:59 06:59
Intake Total 1560 / 1560 1800 / 1800
Output Total 500 / 500 2450 / 2450
Balance 1060 / 1060 -650 / -650
[2024-10-23 10:28] LABS: INR 1.03
[2024-10-23 12:42] LABS: Glucose - Point of Care 300 mg/dl (70-99)
[2024-10-23 12:50] LABS: Glucose - Point of Care 344 mg/dl (70-99)
[2024-10-23] MEDS: NOVOLOG FLEXPEN-HIGH RESISTANCE 10 UNITS SC ×2 (12:58→16:39)
--- NOTE | 2024-10-23 13:55 | CM ---
Addendum entered by Vega Parks 10/23/24 15:31:
Auth approved beginning today, 10/23-11/22
Reference # [id number]
Facility to fax updates to [phone]
Updated [facility] admissions, stated patient can be admitted 7 pm the latest or 10 am transport tomorrow morning
Updated patient bedside, agreeable to d/c today however, mentioned he was told he could d/c tomorrow as he is not medically stable. Discussed w/ nurse who TT hospitalist to confirm medical clearance.
Original Note:
Called Tegan [facility], , to check auth status. CM informed that auth is still under review and has been assigned a nurse.
Plan: [facility] once auth is received
[2024-10-23 16:39] LABS: Glucose - Point of Care 341 mg/dl (70-99)
[2024-10-23] MEDS: COUMADIN 7.5 MG PO (17:15)
[2024-10-23 21:19] LABS: Glucose - Point of Care 191 mg/dl (70-99)
--- NOTE | 2024-10-24 06:01 | PTCARENOTE ---
Pt refused AM weight. Pt educated on importance of daily weights. Pt stated, 'No weight will change in one day I know what I weigh, they weighed me all day yesterday. I have a right to refuse, right? Then what?' Pt educated on right to refuse.
--- NOTE | 2024-10-24 06:42 | PTCARENOTE ---
Pt refused AM labs, pt educated on importance- pt states, 'I have right to refuse.' Jimena Blackwell made aware. No further orders.
--- NOTE | 2024-10-24 06:57 | W.PN.UPDATE ---
Update Note
Progress Note Update
RN reporting this morning that pt refusing PT/INR despite education from nurse. PT with known refusal at times
Pt with Subtherapeutic INR
received Coumadin 10/23
Will have RNs try again later to get PT/INR
[2024-10-24 07:00] VITALS: BP 141/51
[2024-10-24 07:04] LABS: Glucose - Point of Care 115 mg/dl (70-99)
[2024-10-24] MEDS: COREG 3.125 MG PO (08:24)
[2024-10-24] MEDS: DELTASONE 20 MG PO (08:25)
[2024-10-24] MEDS: CRESTOR 40 MG PO (08:25)
[2024-10-24] MEDS: KEPPRA 1500 MG PO (08:25)
[2024-10-24] MEDS: PLAQUENIL 400 MG PO (08:25)
[2024-10-24] MEDS: LASIX 20 MG PO (08:25)
[2024-10-24] MEDS: NOVOLOG FLEXPEN-HIGH RESISTANCE SC (08:26)
--- NOTE | 2024-10-24 09:22 | W.PN.HOSP.TC ---
Today's Communication/Plan
-
await discharge
Assessment / Plan
Assessment / Plan
Physical Exam
General: Well Developed, Well Nourished, No Apparent Distress, Comfortable and Conversant
HEENT: Normocephalic, Moist mucous membranes, Atraumatic, Nose Appears Normal and Ears Appear Normal
Respiratory: Clear and Non Labored Respirations
Cardiac: S1/S2 and Regular Rhythm
GI: Soft, Non Tender, Non Distended and Normal Bowel Sounds
Genito-urinary: No Phelan
Musculoskeletal: No Clubbing, No Cyanosis, No Edema and Other (all toes previously amputated )
Skin: IV/Catheter Site
Neuro: Awake, Alert, AO x 3 , No Slurred Speech, he followed commands.
Psych: Calm,
Sz episode
Patient feels back to baseline. He said he was ready to leave hospital.
- c/w Keppra
- No new signs
CT head done twice: no acute findings
Normal Keppra level
Carotid US no flow-limiting carotid stenosis. By velocity criteria, any internal carotid artery stenosis present is in the range of 0-49%.
Pt refuses MRI brain even with offering anxiety medicine.
Pt refused blood work but later agreed.
d/w neurology, recommend to c/w higher dose of Keppra and OP follow up, ok to discharge. Not new stroke per neurology, dc NIH protocol
LDL 52, goal LDL<70 continue rosuvastatin 40 mg daily. continue anticoagulation with warfarin
# Medical non compliance
Patient reports he takes his medications but does not follow-up blood work. He was counseled about compliance, danger and side effects of taking medications or missing them without checking blood work, importance of Coumadin dosing and INR checks.
He verbalized understanding.
# Subtherapeutic INR
resumed Coumadin.
Pt tends to refuse blood work at times
# Patient complained of chronic pain in his feet and both knees. No swelling noted or erythema in both lower extremities/ joints. He reported that he was on chronic Percocet 10 mg dose every 4-6 hours at home regularly. Reviewing PDMP by pharmacy
and myself showed last Percocet script was in April 2024. Patient was given tramadol few pills in June 2024. No other opioid drugs given since then in the system. Patient is not a shelter patient and he is fully oriented/lucid . I
informed the patient and he became upset ( he said:you are accusing me of lying), We explained to the patient that Percocet was a controlled substance with multiple side effects especially neurological including seizures, we have to confirm home
dose before giving the medication if it was a home medicine. I offered to get medications information from his family/ and he agreed. Called / no answer and left voicemail but no call back. I requested his daughter's number but he refused
to provide it stating she did not want to give it out. Urine drug screen positive for cocaine. I updated the floor layer.
HLD
-c/w home statin.
IDDMT2
Poorly controlled. HGB A1C 9.7
Increase dose of Lantus and added Pre-meal insulin
c/w ISS
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
Await INR result
Est ASCVD with PAD and CVA HX
B/L TMT amputation of both feet
Total discharge time spent to see the patient, examine the patient, review data and lab result, discuss fdischarge plan with patient, nursing staff around 65 minutes
Anticipated Discharge: Today
Subjective/Interval History
-
Date of Service: October 24, 2024
No chest pain
Sleeping this morning, refused blood work and vitals check
Objective Data
-
Labs:
Laboratory Results
10/24/24
06:00
PT Pending
INR Pending
Vital Signs:
Vital Signs
Temp Pulse Resp BP Pulse Ox
98.5 F 55 18 141/51 96
10/24/24 07:00 10/24/24 07:00 10/24/24 07:00 10/24/24 07:00 10/24/24 07:00
I&O
10/23/24 10/24/24 10/25/24
06:59 06:59 06:59
Intake Total 1800 / 1800
Output Total 2450 / 2450 750 / 750
Balance -650 / -650 -750 / -750
--- NOTE | 2024-10-24 11:13 | CM ---
Addendum entered by Vega Parks 10/24/24 12:13:
Patient's w/c unable to transport in ambulance with him. Discussed w/ CM director who discussed w/ Janet/Acute director of recruitment.
Patient will be assessed w/ w/c van for safety and if unable to tolerate will switch back to an ambulance transport
Transport time changed to 1:30
Original Note:
D/c today to SNF. Auth approved for 30 days
Ambulance transport scheduled for 12:30 pm
Updated patient bedside, agreeable to d/c today
[facility]
Report: [phone]

Plan: D/c today to SNF. Ambulance transport
[2024-10-24 11:34] LABS: Glucose - Point of Care 159 mg/dl (70-99)
[2024-10-24] MEDS: NOVOLOG FLEXPEN-HIGH RESISTANCE 2 UNITS SC (12:37)
[2024-10-24 12:49] VITALS: BP 160/82
--- NOTE | 2024-10-24 13:39 | W.DCSUMMARY ---
Discharge Summary
Discharge Data
Date of Admission: 10/20/24
Date of Discharge: 10/24/24
-
Pending Results: No
Hospital Course
59 years old male admitted to the hospital through emergency room. Patient was on the bus when he started to have change in mental status/urination on himself that prompted the small business consultant to stop and called ambulance. Upon arrival to the ER,
patient reported that he had his(typical seizure). Patient was following commands and lucid. He was able to provide history. Patient reported he did not take his seizure medication. CAT scan of the head did not show changes. He was evaluated by
neurologist. Patient reported that he was having left/right upper extremity intermittent weakness. Neurology felt it was mostly consistent with functional neurological disorder. Patient refused to have MRI of the brain. He had a repeat scan of
the head 24 hours that did not show acute abnormalities. Vascular carotid ultrasound did not show critical stenosis. Neurologist increased the level of Keppra dosing. Keppra level came back within average. Patient was supposed to be on Coumadin.
His INR was subtherapeutic. He was placed back on Coumadin but he refused to have regular INR checks. Patient reported that he was tobacco smoker. Urine drug screen came back positive for cocaine. Patient reported chronic pain in his both
knees. He requested Percocet. Checking PDMP did not show recent prescription, last Percocet prescription was in April 2024. Patient was not given Percocet. We could not confirm doses of his medications. A call to 's phone number with
message but no return call. Patient declined to provide daughters for number stating that she would not want a call from us. Patient remained hemodynamic stable. He was able to ambulate with assistant infant toddler teacher. He was evaluated by physical therapy and
recommended intermediate facility placement. Patient was counseled about compliance with his medication including seizure medications Coumadin, importance of monitoring INR, he verbalized understanding. Patient agreed to SNF placement, was
evaluated by rn case manager. Patient was discharged to intermediate in a stable condition.
Discharge Plan
-
Patient Disposition: [facility]/SNF
Discharge Diagnosis/Procedures: Abrupt onset of left arm and weakness, likely functional neurological disorder in light of the patient's similar symptoms a year ago and deflections away from adequate testing
Increased levetiracetam dosing, level was normal.
Case management evaluation may be of benefit as an outpatient, Will need OP follow with neurology can follow locally or with [facility] if more convenient.
Diabetes with diabetic neuropathy
Gait dysfunction
Seizures
Hyperlipidemia
Hypertension
PVD
DJD of both knees.
Medical non compliance, patient was advised to take his medications regularly , Coumadin, monitor INR.
Sarcoidosis
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
Sinus bradycardia, we lowered the dose of Coreg from 12.5 mg BID to 6.25 mg BID
Diet: Diabetic, Carb Controlled
Blood Work: PT/INR on 10/24. Repeat CBC & BMP in 5-7 days with monitoring of INR, goal INR 2-3
Referrals:
UNKNOWN - PT DOES,NOT KNOW [Family Provider]
Prescriptions:
New
levetiracetam 500 mg Tablet
1,500 mg PO BID Qty: 60 0RF
acetaminophen [Tylenol Extra Strength] 500 mg Tablet
1,000 mg PO Q6HPRN PRN (Reason: pain) Qty: 10 0RF
insulin aspart U-100 [Novolog FlexPen U-100 Insulin] 100 unit/mL (3 mL) insulin pen
5 unit SC AC Qty: 15 0RF
Insulin Glargine Lantus [Lantus] 25 UNITS
Subcutaneous Insulin Syringe [Syringe-Insulin] 0 UNIT
As Directed mls/hr SC HS
Ordered By: Tamela Le MD
Last Taken: 10/22/24 22:14 0.25 mls
Continued
prednisone 20 MG tablet
20 mg PO DAILY
hydroxychloroquine 200 MG tablet
400 mg PO BID
furosemide [Lasix] 20 mg Tablet
20 mg PO DAILY
insulin lispro 100 unit/mL solution
1 sliding scale dose SC AC
rosuvastatin [Crestor] 40 mg Tablet
40 mg PO DAILY
Entresto 24-26 mg tablet
1 tab PO BID
warfarin 7.5 mg Tablet
PO
Rx Instructions:
no pharamy fills
Changed
carvedilol [Coreg] 12.5 mg Tablet
6.25 mg PO BID Qty: 0 0RF
Discontinued
levetiracetam 1,000 mg tablet
1,000 mg PO DAILY
Discharge Orders:
Discharge Patient (As Directed); Ordered 10/22/24
Ordered By: Tamela Le
Discharge Date and Time
Discharge Date/Time: 10/24/24 13:02
Print Language: JAPANESE
== END 2024-10-24 13:02 | DRG 101 ==
LOC: 4 WEST ACU 14:05
PROVIDERS: Nurse Practitioner; Nurse Practitioner Family; Physician Assistant Medical; ADMITTING PHYSICIAN Internal Medicine; ATTENDING PHYSICIAN Internal Medicine; CONSULT PHYSICIAN Psychiatry & Neurology Neurology; EMERGENCY PHYSICIAN Student in an Organized Health Care Education/Training Program
DX: G40.909 Epilepsy, unspecified, not intractable, without status epilepticus (principal); D68.62 Lupus anticoagulant syndrome; E11.40 Type 2 diabetes mellitus with diabetic neuropathy, unspecified; E11.51 Type 2 diabetes mellitus with diabetic peripheral angiopathy without gangrene; E78.5 Hyperlipidemia, unspecified; Z91.199 Patient's noncompliance with other medical treatment and regimen due to unspecified reason; D86.9 Sarcoidosis, unspecified; Z79.4 Long term (current) use of insulin; Z79.01 Long term (current) use of anticoagulants; I50.9 Heart failure, unspecified; I11.0 Hypertensive heart disease with heart failure; M06.9 Rheumatoid arthritis, unspecified; F17.210 Nicotine dependence, cigarettes, uncomplicated; Z91.041 Radiographic dye allergy status; Z99.3 Dependence on wheelchair; F40.240 Claustrophobia; G89.29 Other chronic pain; I25.10 Atherosclerotic heart disease of native coronary artery without angina pectoris; I48.91 Unspecified atrial fibrillation; Z86.73 Personal history of transient ischemic attack (TIA), and cerebral infarction without residual deficits; R29.709 NIHSS score 9; Z53.20 Procedure and treatment not carried out because of patient's decision for unspecified reasons; Z79.899 Other long term (current) drug therapy
CPT/HCPCS: 70450; 80048; 80053; 80061; 80177; 80306; 80307; 81003; 81015; 82947; 82962; 83036; 85025; 85610; 87070; 87086; 92610; 93005; 93880; 97163; 97167; 97530; 97535; 99285; 99406